=== PATIENT | male | born 2000 | race Hispanic/Latino ===

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

== ENCOUNTER 2021-09-22 15:42 | Inpatient (IN) | payer MEDICAID ==
[2021-09-22] MEDS ORDERED: propofoL 200 MG/20 ML VIAL IV ONE ×2 (16:55)
--- NOTE | 2021-09-22 16:55 | Emergency Department Report ---
Upper Extremity - HPI Chief Complaint: Extremity Injury, Upper Stated Complaint: SHOULDER DISLOCATED Time Seen by Provider: 09/22/21 16:25 Occurred When: Today Mechanism: Fall Severity: moderate Symptoms: Yes Pain with Movement, Yes Deformity, Yes Limited Range of Movement Other History: Patient is a 21-year-old male with history of previous left shoulder dislocation presenting with complaint of dislocated shoulder after falling out of bed earlier today. ED Review of Systems ROS: Stated complaint: SHOULDER DISLOCATED Other details as noted in HPI Comment: All other systems reviewed and negative Constitutional: denies: chills, fever Respiratory: denies: cough, shortness of breath, wheezing Cardiovascular: denies: chest pain, palpitations Gastrointestinal: denies: abdominal pain, nausea, diarrhea Musculoskeletal: denies: back pain, joint swelling, arthralgia Skin: denies: rash, lesions Neurological: denies: headache, weakness, paresthesias Psychiatric: denies: anxiety, depression ED Past Medical Hx - Past Medical History Hx Congestive Heart Failure: No Hx Diabetes: No Hx Seizures: Yes (on seizure medications received last dose at 2200) Hx Asthma: No Hx COPD: No Additional medical history: hypothyroidism, SI, Depression - Social History Smoking Status: Never Smoker - Medications Home Medications: Home Medications Medication Instructions Recorded Confirmed Last Taken Type Divalproex Sprinkle [Depakote 750 mg PO BID #60 capsule 08/21/18 08/23/18 Unknown Rx Sprinkle] Levothyroxine [Synthroid] 25 mcg PO DAILY@0600 #30 tablet 08/21/18 08/23/18 Unknown Rx OXcarbazepine [Trileptal] 150 mg PO BID #60 tablet 08/21/18 08/23/18 Unknown Rx Sertraline [Zoloft] 50 mg PO QDAY #30 tablet 08/21/18 08/23/18 Unknown Rx levETIRAcetam [Keppra TAB] 1,000 mg PO BID #60 tablet 08/21/18 08/23/18 Unknown Rx Upper Extremity Exam - Exam General: Vital signs noted. No distress. Alert and acting appropriately. Head and Torso: No HEENT Abnormality, No Neck Tenderness, No Chest/Lungs Abnormality, No Abdominal Tenderness, No Back Tenderness Shoulder Exam: Yes Shoulder Tenderness, Yes Normal Range of Motion in Shoulder, Yes Shoulder Deformity (Abnormal contour of left shoulder), No Clavicle Tenderness, No AC Joint Tenderness Arm Exam: No Arm/Humerus Tenderness, No Arm Deformity Elbow: Yes Normal Range of Motion in Elbow, No Elbow Tenderness, No Elbow Deformity Forearm: No Forearm Tenderness, No Forearm Deformity, No Pain with Pronation, No Pain with Supination Wrist: Yes Normal ROM in Wrist, No Wrist Tenderness, No Wrist Deformity, No Snuffbox Tenderness, No Pain with Axial Thumb Compression Hand: No Hand Tenderness, No Hand Deformity, No Digit Tenderness, No Normal ROM in Digit(s), No Digit(s) Deformity, No Tendon Dysfunction CMS Exam: Yes Normal Distal Pulses, Yes Normal Capillary Refill, Yes Normal Distal Sensation, No Broken Skin ED Course Vital Signs 09/22/21 16:21 Temperature 98 F Pulse Rate 81 Respiratory 18 Rate Blood Pressure 142/85 [Right] O2 Sat by Pulse 99 Oximetry - Intubation Time Out Performed: Yes Sedative: Etomidate Mg Given: 20 Paralytic: Rocuronium Mg Given: 100 Laryngoscope: fiberoptic video scope Size: 4 ET Tube Size: 7.5 Tube Secured Depth (cm): 24 Tube Secured Location: lips Tube Placement Confirmation: visualized tube passing t, equal breath sounds bilat, no breath sounds over epi Patient Tolerated Procedure: well, no complications Intubation Complications: none - Moderate Sedation Indications: fracture/dislocation redu ASA Class: I Mallampati Airway Score: 1 Preparation: cafeteria monitor applied, pulse oximeter, supplemental O2 applied, reversal agents at bedside, suction/airway equipment at bedside, IV secured IV Propofol Dose (mgs): 200 Complications: none Patient Tolerated Procedure: well ED Medical Decision Making - Lab Data Result diagrams: 09/22/21 18:30 09/22/21 18:30 - Medical Decision Making Patient presented initially with complaint of left shoulder dislocation. Several attempts were made to reduce the shoulder under moderate sedation how ever the shoulder appeared to reduce when attempting to place him in sling. As I was waiting for Ortho consult to call back I was alerted by staff that patient was having a seizure. I arrived to the room to find patient exhibiting seizure-like activity. He was given 2 mg of IV Ativan x2 with no improvement. Episode lasted roughly 5 minutes. Oxygen saturations were in the 80s. Decision was made to intubate under RSI. He was placed on a propofol infusion for sedation. 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 I discussed the case with Dr. Boyd. States he will see patient tomorrow in ICU. Repeat shoulder x-ray after patient intubated shows successful reduction of left shoulder. Patient placed in sling. CBC and CMP unremarkable. Patient stable on vent. Will admit to ICU. Critical Care Time: Yes Critical care time in (mins) excluding proc time.: 35 Critical care attestation.: If time is entered above; I have spent that time in minutes in the direct care of this critically ill patient, excluding procedure time. ED Disposition Clinical Impression: Seizure-like activity, Recurrent dislocation, left shoulder Disposition: ADMITTED INPATIENT Is pt being admited?: Yes Condition: Stable
--- NOTE | 2021-09-22 16:59 | XRay Report ---
Left shoulder, 3 views HISTORY: Fall COMPARISON: 08/24/2018. FINDINGS: There is dislocation of the left glenohumeral joint. The left humerus projects inferiorly with respec t to the glenoid on scapular Y view. Remote appearing deformity of the glenoid likely reflects sequel a of prior surgery and/or trauma. No acute fracture is identified. IMPRESSION: Dislocation of the left glenohumeral joint with inferior displacement of the humeral head . Signer Name: Alcon Schultz MD Signed: 09/22/2021 4:54 PM Workstation Name: [id number]
[2021-09-22] MEDS ORDERED: ONDANSETRON 4 MG/2 ML INJ IV ONE (17:22)
[2021-09-22] MEDS ORDERED: MORPHINE 4 MG/1 ML INJ IV ONE (17:22)
[2021-09-22] MEDS ORDERED: SODIUM CHLORIDE 0.9% 1000 ML 1,000 ML ONE (17:42)
[2021-09-22] MEDS ORDERED: LORazepam 2 MG/ML VIAL ONE ×2 (18:02→18:12)
[2021-09-22] MEDS ORDERED: LORazepam 2 MG/ML VIAL IV ONE (18:55)
[2021-09-22 18:58] LABS: Basophils % (Auto) 0.5 % (0.0-1.8); Eosinophils % (Auto) 0.5 % (0.0-4.3); Hematocrit 46.3 % (35.5-45.6); Hemoglobin 15.4 gm/dl (11.8-15.2); Lymphocytes # (Auto) 1.9 K/mm3 (1.2-5.4); Lymphocytes % (Auto) 28.6 % (13.4-35.0); Mean Corpuscular HGB Conc 33 % (32-34); Mean Corpuscular Volume 85 fl (84-94); Monocytes # (Auto) 0.5 K/mm3 (0.0-0.8); Monocytes % (Auto) 7.5 % (0.0-7.3); Platelet Count 150 K/mm3 (140-440); Red Blood Count 5.47 M/mm3 (3.65-5.03); Red Cell Distribution Width 14.6 % (13.2-15.2)
--- NOTE | 2021-09-22 19:03 | XRay Report ---
CHEST 1 VIEW INDICATION: Tube placement. COMPARISON: None FINDINGS: SUPPORT DEVICES: Endotracheal tube tip just below the level the clavicles. HEART: Within normal limits. LUNGS/PLEURA: No acute air space or interstitial disease. ADDITIONAL FINDINGS: None. IMPRESSION: 1. Endotracheal tube in satisfactory position. Clear lungs. Signer Name: Carson Yancey MD Signed: 09/22/2021 6:59 PM Workstation Name: [id number]
[2021-09-22 19:18] LABS: Alanine Aminotransferase 8 units/L (7-56); Albumin 5.1 g/dL (3.9-5); BUN/Creatinine Ratio 19; Blood Urea Nitrogen 15 mg/dL (9-20); Calcium 9.3 mg/dL (8.4-10.2); Hemolysis Index 23
[2021-09-22 19:23] LABS: ABG Base Excess -2.6 mmol/L (-2.0-3.0); ABG HCO3 23.6 mmol/L (20.0-26.0); ABG Methemoglobin 0.6 % (0.0-1.5); ABG Oxygen Saturation 99.1 % (95.0-99.0); ABG PCO2 45.8 mm Hg; ABG PH 7.33 pH Units (7.350-7.450); ABG PO2 185.7 mm Hg (80.0-90.0)
[2021-09-22 19:24] LABS: Bilirubin,Direct < 0.2 mg/dL (0-0.2)
--- NOTE | 2021-09-22 19:33 | XRay Report ---
Single frontal image of the left shoulder INDICATION: Post reduction. COMPARISON: None available. IMPRESSION: No acute osseous abnormality. Interval relocation with normal alignment. Subchondral cy stic change versus old posttraumatic deformity along the glenoid. Soft tissues are unremarkable. Signer Name: Carson Yancey MD Signed: 09/22/2021 7:29 PM Workstation Name: [id number]
[2021-09-22] MEDS ORDERED: MIDAZOLAM 2 MG/2 ML INJ IV PRN ×2 (19:38→19:44)
[2021-09-22] MEDS ORDERED: MIDAZOLAM/NS Drip 100mg/100ml 100 MG/100 ML BAG IV SCH ×2 (20:00)
[2021-09-22] MEDS ORDERED: METOCLOPRAMIDE 10 MG/2 ML INJ IV PRN (20:39)
[2021-09-22] MEDS ORDERED: MORPHINE 2 MG/1 ML INJ IV PRN (20:39)
[2021-09-22] MEDS ORDERED: HYDROmorphone 0.5 MG/0.5 ML INJ IV PRN (20:39)
[2021-09-22] MEDS ORDERED: ONDANSETRON 4 MG/2 ML INJ IV PRN (20:39)
--- NOTE | 2021-09-22 20:39 | History and Physical Report ---
History of Present Illness Date of examination: 09/22/21 Date of admission: September 22, 2021 Chief complaint: Persistent seizures while in the emergency room History of present illness: History of present illness 21-year-old male with history of hypothyroidism, seizure disorder on Trileptal and Depakote comes in for left shoulder dislocation. While the shoulder disloca tion was being corrected by the ER physician--patient continued to have seizures multiple times and went into hypoxia because of which the patient has to be intubated in the emergency room. After intubation left shoulder dislocation was corrected. No seizures recently. No fever or chills. No cough. Compliant with medications - Past Medical History --Seizure disorder seizure medications received last dose ter at 2200) --Additional medical history: hypothyroidism, SI, Depression --Recurrent left shoulder dislocation -Past surgical history y --left shoulder dislocation replacement -Family history --HTN - Social History --Smoking Status: Never Smoker - Medications --Home Medications: Home Medications Medication Instructions Recorded Confirmed Last Taken Type Divalproex Sprinkle [Depakote 750 mg PO BID #60 capsule 08/21/18 08/23/18 Unknown Rx Sprinkle] Levothyroxine [Synthroid] 25 mcg PO DAILY@0600 #30 tablet 08/21/18 08/23/18 Unknown Rx OXcarbazepine [Trileptal] 150 mg PO BID #60 tablet 08/21/18 08/23/18 Unknown Rx Sertraline [Zoloft] 50 mg PO QDAY #30 tablet 08/21/18 08/23/18 Unknown Rx levETIRAcetam [Keppra TAB] 1,000 mg PO BID #60 tablet 08/21/18 08/23/18 Unknown Rx -Review of Systems ROS: Stated complaint: SHOULDER DISLOCATED Other details as noted in HPI Comment: All other systems reviewed and negative Constitutional: denies: chills, fever Respiratory: denies: cough, shortness of breath, wheezing Cardiovascular: denies: chest pain, palpitations Gastrointestinal: denies: abdominal pain, nausea, diarrhea Musculoskeletal: denies: back pain, joint swelling, arthralgia Skin: denies: rash, lesions Neurological: denies: headache, weakness, paresthesias Psychiatric: denies: anxiety, depression Medications and Allergies Allergies Allergy/AdvReac Type Severity Reaction Status Date / Time ketamine Allergy Hives Verified 09/22/21 17:10 tomato Allergy Anaphylaxis Verified 09/22/21 16:24 Home Medications Medication Instructions Recorded Confirmed Last Taken Type Divalproex Sprinkle [Depakote 750 mg PO BID #60 capsule 08/21/18 08/23/18 Unknown Rx Sprinkle] Levothyroxine [Synthroid] 25 mcg PO DAILY@0600 #30 tablet 08/21/18 08/23/18 Unkn own Rx OXcarbazepine [Trileptal] 150 mg PO BID #60 tablet 08/21/18 08/23/18 Unknown Rx Sertraline [Zoloft] 50 mg PO QDAY #30 tablet 08/21/18 08/23/18 Unknown Rx levETIRAcetam [Keppra TAB] 1,000 mg PO BID #60 tablet 08/21/18 08/23/18 Unknown Rx Active Meds: Active Medications Propofol (Diprivan 10 Mg/Ml) 1,000 mg in 100 mls @ 2.504 mls/hr IV TITR SAUL; Protocol Last Titration: 09/22/21 19:51 Dose: 30 mcg/kg/min, 15.023 mls/hr MIDAZOLAM/NS Drip 100mg/100ml (Midazolam/Ns Drip 100mg/100ml) 100 mg in 100 mls @ 1 mls/hr IV TITR SAUL; Protocol Last Admin: 09/22/21 19:45 Dose: 1 mg/hr, 1 mls/hr Midazolam HCl (Midazolam 2 Mg/2 Ml Inj) 2 mg IV Q10MIN PRN PRN Reason: Sedation Exam - Physical Exam Narrative exam: Patient intubated - Constitutional Vitals: Temp Pulse Resp BP Pulse Ox 98.6 F 79 16 122/73 99 09/22/21 18:35 09/22/21 20:05 09/22/21 18:35 09/22/21 20:05 09/22/21 20:05 General appearance: Present: severe distress, well-nourished - EENT Eyes: Present: PERRL ENT: hearing intact, clear oral mucosa - Neck Neck: Present: supple, normal ROM - Respiratory Respiratory effort: normal Respiratory: bilateral: CTA - Cardiovascular Heart rate: 78 Rhythm: regular Heart Sounds: Present: S1 & S2. Absent: rub, click - Extremities Extremities: pulses symmetrical, No edema, abnormal (Left shoulder dislocation) Extremity abnormal: other (Left anterior shoulder dislocation) Peripheral Pulses: within normal limits - Abdominal General gastrointestinal: Present: soft, non-tender, non-distended, normal bowel sounds Male genitourinary: Present: normal - Integumentary Integumentary: Present: clear, warm, dry - Musculoskeletal Musculoskeletal: gait normal, strength equal bilaterally - Psychiatric Psychiatric: appropriate mood/affect, intact judgment & insight, other (Continued seizures or emergency room) - Neurologic Neurologic: CNII-XII intact, moves all extremities - Allied Health Allied health notes reviewed: nursing, case management Results - Labs CBC & Chem 7: 09/23/21 04:44 09/23/21 04:44 Labs: Laboratory Last Values WBC 6.8 K/mm3 (4.5-11.0) 09/22/21 18:30 RBC 5.47 M/mm3 (3.65-5.03) H 09/22/21 18:30 Hgb 15.4 gm/dl (11.8-15.2) H 09/22/21 18:30 Hct 46.3 % (35.5-45.6) H 09/22/21 18:30 MCV 85 fl (84-94) 09/22/21 18:30 MCH 28 pg (28-32) 09/22/21 18:30 MCHC 33 % (32-34) 09/22/21 18:30 RDW 14.6 % (13.2-15.2) 09/22/21 18:30 Plt Count 150 K/mm3 (140-440) 09/22/21 18:30 Lymph % (Auto) 28.6 % (13.4-35.0) 09/22/21 18:30 [place] % (Auto) 7.5 % (0.0-7.3) H 09/22/21 18:30 Eos % (Auto) 0.5 % (0.0-4.3) 09/22/21 18:30 Baso % (Auto) 0.5 % (0.0-1.8) 09/22/21 18:30 Lymph # (Auto) 1.9 K/mm3 (1.2-5.4) 09/22/21 18:30 [place] # (Auto) 0.5 K/mm3 (0.0-0.8) 09/22/21 18:30 Eos # (Auto) 0.0 K/mm3 (0.0-0.4) 09/22/21 18:30 Baso # (Auto) 0.0 K/mm3 (0.0-0.1) 09/22/21 18:30 Seg Neutrophils % 62.9 % (40.0-70.0) 09/22/21 18:30 Seg Neutrophils # 4.3 K/mm3 (1.8-7.7) 09/22/21 18:30 ABG pH 7.330 pH Units (7.350-7.450) L 09/22/21 19:08 ABG pCO2 45.8 mm Hg 09/22/21 19:08 ABG pO2 185.7 mm Hg (80.0-90.0) H 09/22/21 19:08 ABG HCO3 23.6 mmol/L (20.0-26.0) 09/22/21 19:08 ABG O2 Saturation 99.1 % (95.0-99.0) H 09/22/21 19:08 ABG O2 Content 20.9 (0.0-44) 09/22/21 19:08 ABG Base Excess -2.6 mmol/L (-2.0-3.0) L 09/22/21 19:08 ABG Hemoglobin 15.0 gm/dl (14.0-18.0) 09/22/21 19:08 ABG Carboxyhemoglobin 1.3 % (0.0-5.0) 09/22/21 19:08 ABG Methemoglobin 0.6 % (0.0-1.5) 09/22/21 19:08 Oxyhemoglobin 97.2 % (95.0-99.0) 09/22/21 19:08 FiO2 35 % 09/22/21 19:08 Sodium 141 mmol/L (137-145) 09/22/21 18:30 Potassium 3.9 mmol/L (3.6-5.0) 09/22/21 18:30 Chloride 105.9 mmol/L (98-107) 09/22/21 18:30 Carbon Dioxide 21 mmol/L (22-30) L 09/22/21 18:30 Anion Gap 18 mmol/L 09/22/21 18:30 BUN 15 mg/dL (9-20) 09/22/21 18:30 Creatinine 0.8 mg/dL (0.8-1.3) 09/22/21 18:30 Estimated GFR > 60 ml/min 09/22/21 18:30 BUN/Creatinine Ratio 19 % 09/22/21 18:30 Glucose 110 mg/dL (75-100) H 09/22/21 18:30 Calcium 9.3 mg/dL (8.4-10.2) 09/22/21 18:30 Total Bilirubin 0.90 mg/dL (0.1-1.2) 09/22/21 18:30 Direct Bilirubin < 0.2 mg/dL (0-0.2) 09/22/21 18:30 Indirect Bilirubin 0.7 mg/dL 09/22/21 18:30 AST 15 units/L (5-40) 09/22/21 18:30 ALT 8 units/L (7-56) 09/22/21 18:30 Alkaline Phosphatase 65 units/L (35-129) 09/22/21 18:30 Total Protein 7.3 g/dL (6.3-8.2) 09/22/21 18:30 Albumin 5.1 g/dL (3.9-5) H 09/22/21 18:30 Albumin/Globulin Ratio 2.3 % 09/22/21 18:30 Short CBC 09/22/21 09/23/21 Range/Units 18:30 04:44 WBC 6.8 7.5 (4.5-11.0) K/mm3 Hgb 15.4 H 15.3 H (11.8-15.2) gm/dl Hct 46.3 H 44.7 (35.5-45.6) % Plt Count 150 104 L (140-440) K/mm3 BMP 09/22/21 09/23/21 18:30 04:44 Sodium 141 140 Potassium 3.9 4.2 Chloride 105.9 102.6 Carbon Dioxide 21 L 21 L BUN 15 14 Creatinine 0.8 0.9 Glucose 110 H 81 Calcium 9.3 10.0 Liver Function 09/22/21 09/23/21 Range/Units 18:30 04:44 Total Bilirubin 0.90 0.90 (0.1-1.2) mg/dL Direct Bilirubin < 0.2 (0-0.2) mg/dL AST 15 15 (5-40) units/L ALT 8 7 (7-56) units/L Alkaline Phosphatase 65 70 (35-129) units/L Albumin 5.1 H 4.8 (3.9-5) g/dL Urine 09/22/21 Range/Units 19:52 Urine Color Yellow (Yellow) Urine pH 7.5 H (5.0-7.0) Ur Specific [place] 1.020 (1.003-1.030) Urine Protein 30 mg/dl (Negative) mg/dL Urine Glucose (UA) Negative (Negative) mg/dL - Imaging and Cardiology CT Scan - head: report reviewed Imaging and Cardiology: Shoulder x-ray Dislocation of the left glenohumeral joint with increased displacement of the humeral head Assessment and Plan Assessment and plan: Critical care statement The high probability OF a clinically significant sudden or life-threatening deterioration of the cardiorespiratory system and endocrine system required my full and direct attention, intervention and postoperative management. The aggregate medical care time was 40 minutes. The time is in addition to time spent performing reported procedures but includes the followin: Data review and interpretation 2: Patient assessment and monitoring of vital signs 3: Documentation 4:: Medication orders and management Advance Directives: Yes (Full code) VTE prophylaxis?: Chemical Plan of care discussed with patient/family: Yes - Patient Problems (1) Status epilepticus Current Visit: Yes Status: Acute Plan to address problem: Patient was seizing continuously and becoming hypoxic Because of the hypoxia patient had to be intubated Patient sedated with propofol Versed not to be used Informed ICU and emergency room nurse Continue vent management IV Keppra 1000 mg every 12 Neurology consult Coach Driver consult (2) Recurrent dislocation, left shoulder Current Visit: Yes Status: Acute Plan to address problem: Replaced after intubation and sedation Left arm in sling Patient to see orthopedic surgeon as outpatient for correction of the rotator cuff weakness (3) Hypothyroidism Current Visit: No Status: Chronic Qualifiers: Hypothyroidism type: acquired Qualified Code(s): E03.9 - Hypothyroidism, unspecified Plan to address problem: Check TSH Continue Synthroid (4) DVT prophylaxis Current Visit: Yes Status: Acute Plan to address problem: On anticoagulation GI prophylaxis (5) Advance care planning Current Visit: Yes Status: Acute Plan to address problem: Could not be done because of the patient's intubation status and no family present
[2021-09-22] MEDS ORDERED: SODIUM CHLORIDE 0.9% 1000 ML 1,000 ML IV SCH (20:45)
[2021-09-22 21:43] LABS: Bilirubin,Urine Negative (Negative); Color,Urine Yellow (Yellow)
[2021-09-22 21:44] LABS: Blood,Urine Negative (Negative); PH,Urine 7.5 (5.0-7.0)
[2021-09-22 21:46] LABS: Calcium Oxalate Crystals,Urine FEW; Mucus,Urine 3+ /HPF
[2021-09-22] MEDS ORDERED: FAMOTIDINE 20 MG/2 ML INJ IV SCH (22:00)
[2021-09-22] MEDS ORDERED: DIVALPROEX SPRINKLE 125 MG CAP PO SCH (22:00)
[2021-09-22] MEDS: HEPARIN 5,000 UNIT/1 ML VIAL SUB-Q SCH (23:00)
--- NOTE | 2021-09-22 23:31 | XRay Report ---
XR abdomen 1V ap INDICATION / CLINICAL INFORMATION: OG tube placement. COMPARISON: None available. TECHNIQUE: Abdominal x-ray 08/19/2018 FINDINGS: TUBES / LINES: Esophagogastric tube terminates within the mid fundus. BOWEL GAS PATTERN: No significant abnormality. FREE AIR / EXTRALUMINAL GAS: None seen. ADDITIONAL FINDINGS: No significant additional findings. IMPRESSION: 1. Esophagogastric tube in expected position. Signer Name: Mariusz Gamble II, MD Signed: 09/22/2021 11:27 PM Workstation Name: [id number]
[2021-09-23] MEDS: OXcarbazepine 150 MG TAB PO SCH ×3 (00:40→21:53)
[2021-09-23] MEDS: levETIRAcetam 1,000 MG in DEXTROSE 5% IN WATER 100 ML IV SCH ×2 (00:40→10:12)
[2021-09-23 04:42] LABS: ABG Base Excess 0.2 mmol/L (-2.0-3.0); ABG HCO3 25.7 mmol/L (20.0-26.0); ABG Methemoglobin 0.6 % (0.0-1.5); ABG Oxygen Saturation 98.3 % (95.0-99.0); ABG PCO2 44.8 mm Hg; ABG PH 7.376 pH Units (7.350-7.450)
[2021-09-23] MEDS ORDERED: ETOMIDATE 20 MG/10 ML INJ IV ONE (05:00)
[2021-09-23] MEDS ORDERED: ROCURONIUM 50 MG/5 ML INJ IV ONE (05:00)
[2021-09-23 05:29] LABS: Basophils # (Auto) 0.1 K/mm3 (0.0-0.1); Basophils % (Auto) 0.7 % (0.0-1.8); Eosinophils # (Auto) 0.1 K/mm3 (0.0-0.4); Eosinophils % (Auto) 1.1 % (0.0-4.3); Hematocrit 44.7 % (35.5-45.6); Hemoglobin 15.3 gm/dl (11.8-15.2); Lymphocytes # (Auto) 1.5 K/mm3 (1.2-5.4); Lymphocytes % (Auto) 19.7 % (13.4-35.0); Mean Corpuscular HGB Conc 34 % (32-34); Mean Corpuscular Volume 84 fl (84-94); Monocytes # (Auto) 0.6 K/mm3 (0.0-0.8); Monocytes % (Auto) 8.2 % (0.0-7.3); Red Blood Count 5.32 M/mm3 (3.65-5.03); Red Cell Distribution Width 14.2 % (13.2-15.2)
[2021-09-23 05:49] LABS: Alanine Aminotransferase 7 units/L (7-56); Albumin 4.8 g/dL (3.9-5); BUN/Creatinine Ratio 16; Blood Urea Nitrogen 14 mg/dL (9-20); Hemolysis Index 37
[2021-09-23] MEDS: LEVOTHYROXINE 25 MCG TAB PO SCH (05:56)
[2021-09-23 06:27] LABS: Platelet Count 104 K/mm3 (140-440)
[2021-09-23] MEDS ORDERED: FAMOTIDINE 20 MG TAB FEEDTUBE SCH (10:00)
[2021-09-23] MEDS: VALPROIC ACID 250 MG/5 ML ORAL LIQD FEEDTUBE SCH ×2 (10:09→21:53)
[2021-09-23] MEDS: HEPARIN 5,000 UNIT/1 ML VIAL SUB-Q SCH ×2 (10:09→21:54)
[2021-09-23] MEDS: SERTRALINE 50 MG TAB PO SCH (10:10)
[2021-09-23] MEDS: LORazepam 2 MG/ML VIAL IV PRN ×2 (11:29→15:36)
--- NOTE | 2021-09-23 13:04 | Consultation ---
History of Present Illness Consult date: 09/23/21 History of present illness: 21 y/o male with seizure like activity admitted with seizure and acute respiratory failure secondary to this. Past History Past Medical History: hypothyroidism, other (psych issues, with multiple admits to other hospitals for insertion of foregin objects into orifices and depression anxiety) Medications and Allergies Allergies Allergy/AdvReac Type Severity Reaction Status Date / Time ketamine Allergy Hives Verified 09/22/21 17:10 tomato Allergy Anaphylaxis Verified 09/22/21 16:24 Home Medications Medication Instructions Recorded Confirmed Last Taken Type Divalproex Sprinkle [Depakote 750 mg PO BID #60 capsule 08/21/18 08/23/18 Unknown Rx Sprinkle] Levothyroxine [Synthroid] 25 mcg PO DAILY@0600 #30 tablet 08/21/18 08/23/18 Unknown Rx OXcarbazepine [Trileptal] 150 mg PO BID #60 tablet 08/21/18 08/23/18 Unknown Rx Sertraline [Zoloft] 50 mg PO QDAY #30 tablet 08/21/18 08/23/18 Unknown Rx levETIRAcetam [Keppra TAB] 1,000 mg PO BID #60 tablet 08/21/18 08/23/18 Unknown Rx Active Meds: Active Medications Acetaminophen (Acetaminophen 325 Mg Tab) 650 mg PO Q4H PRN PRN Reason: Pain MILD(1-3)/Fever >100.5/VALERA Famotidine (Famotidine 20 Mg Tab) 20 mg FEEDTUBE BID [facility] Last Admin: 09/23/21 10:09 Dose: 20 mg Heparin Sodium (Porcine) (Heparin 5,000 Unit/1 Ml Vial) 5,000 unit SUB-Q Q12HR [facility] Last Admin: 09/23/21 10:09 Dose: 5,000 unit Hydromorphone HCl (Hydromorphone 0.5 Mg/0.5 Ml Inj) 0.5 mg IV Q3H PRN PRN Reason: Pain , Severe (7-10) Propofol (Diprivan 10 Mg/Ml) 1,000 mg in 100 mls @ 2.504 mls/hr IV TITR [facility]; Protocol Last Admin: 09/23/21 11:21 Dose: 50 mcg/kg/min, 25.038 mls/hr Levetiracetam 1,000 mg/ (Dextrose) 110 mls @ 400 mls/hr IV Q12HR [facility] Last Admin: 09/23/21 10:12 Dose: 400 mls/hr Levothyroxine Sodium (Levothyroxine 25 Mcg Tab) 25 mcg PO DAILY@0600 [facility] Last Admin: 09/23/21 05:56 Dose: 25 mcg Lorazepam (Lorazepam 2 Mg/Ml Vial) 2 mg IV Q1H PRN PRN Reason: Seizures Last Admin: 09/23/21 11:29 Dose: 2 mg Metoclopramide HCl (Metoclopramide 10 Mg/2 Ml Inj) 10 mg IV Q6H PRN PRN Reason: Nausea And Vomiting Morphine Sulfate (Morphine 2 Mg/1 Ml Inj) 2 mg IV Q4H PRN PRN Reason: Pain, Moderate (4-6) Ondansetron HCl (Ondansetron 4 Mg/2 Ml Inj) 4 mg IV Q8H PRN PRN Reason: Nausea And Vomiting Oxcarbazepine (Oxcarbazepine 150 Mg Tab) 150 mg PO BID [facility] Last Admin: 09/23/21 11:21 Dose: 150 mg Sertraline HCl (Sertraline 50 Mg Tab) 50 mg PO QDAY [facility] Last Admin: 09/23/21 10:10 Dose: 50 mg Sodium Chloride (Sodium Chloride 0.9% 10 Ml Flush Syringe) 10 ml IV BID [facility] Last Admin: 09/23/21 10:10 Dose: 10 ml Sodium Chloride (Sodium Chloride 0.9% 10 Ml Flush Syringe) 10 ml IV PRN PRN PRN Reason: LINE FLUSH Valproic Acid (Valproic Acid 250 Mg/5 Ml Oral Liqd) 750 mg FEEDTUBE BID [facility] Last Admin: 09/23/21 10:09 Dose: 750 mg Review of Systems ROS unobtainable: due to endotracheal tube, due to mental status Physical Examination Vital signs: Vital Signs Temp Pulse Resp BP Pulse Ox 98 F 81 18 142/85 99 09/22/21 16:21 09/22/21 16:21 09/22/21 16:21 09/22/21 16:21 09/22/21 16:21 General appearance: no acute distress, asleep Eyes: non-icteric ENT: other (orally intubated and sedated) Neck: supple Effort: normal Ascultation: Bilateral: clear Results - Laboratory Findings CBC and BMP: 09/24/21 04:19 09/24/21 04:19 ABG ABG pH 7.376 pH Units (7.350-7.450) 09/23/21 04:00 ABG pCO2 44.8 mm Hg 09/23/21 04:00 ABG pO2 125.0 mm Hg (80.0-90.0) H 09/23/21 04:00 ABG O2 Saturation 98.3 % (95.0-99.0) 09/23/21 04:00 Abnormal lab findings: Abnormal Labs 09/22/21 09/22/21 09/22/21 18:30 18:30 19:08 RBC 5.47 H Hgb 15.4 H Hct 46.3 H Plt Count [place] % (Auto) 7.5 H Seg Neutrophils % ABG pH 7.330 L ABG pO2 185.7 H ABG O2 Saturation 99.1 H ABG Base Excess -2.6 L ABG Hemoglobin Carbon Dioxide 21 L Glucose 110 H Albumin 5.1 H Urine pH 09/22/21 09/23/21 09/23/21 19:52 04:00 04:44 RBC 5.32 H Hgb 15.3 H Hct Plt Count 104 L [place] % (Auto) 8.2 H Seg Neutrophils % 70.3 H ABG pH ABG pO2 125.0 H ABG O2 Saturation ABG Base Excess ABG Hemoglobin 13.6 L Carbon Dioxide Glucose Albumin Urine pH 7.5 H 09/23/21 04:44 RBC Hgb Hct Plt Count [place] % (Auto) Seg Neutrophils % ABG pH ABG pO2 ABG O2 Saturation ABG Base Excess ABG Hemoglobin Carbon Dioxide 21 L Glucose Albumin Urine pH Assessment and Plan 21 y/o male with seizure like activity, intubated for airway protection with dislocated shoulder, corrected 1. Await head CT results 2. If negative, discontinue sedation and extubate 3. Patient apparently goes to multiple hospitals throughout the city and has severe psych issues (swallows foreign objects, inserts objects, pseudoseizures, etc). Once extubated, psych eval, sitter needed. CCT 31 minutes.
--- NOTE | 2021-09-23 13:48 | Cat Scan Report ---
CT head/brain wo con INDICATION / CLINICAL INFORMATION: 21 years Male; ams. TECHNIQUE: Routine CT head without contrast. All CT scans at this location are performed using CT dos e reduction for ALARA by means of automated exposure control. COMPARISON: None. FINDINGS: BRAIN / INTRACRANIAL CONTENTS: The brain parenchyma appears to demonstrate appropriate attenuation. T he ventricular system is within normal limits in size and configuration. There is no clear CT evidenc e of acute intracranial hemorrhage or significant mass effect. ORBITS: No significant abnormality of visualized orbits. SINUSES / MASTOIDS: There is minimal mucosal thickening within the ethmoid air cells and visualized l eft maxillary sinus. CRANIOCERVICAL JUNCTION: No significant abnormality. ADDITIONAL FINDINGS: None. IMPRESSION: 1. There is no CT evidence of acute intracranial process. Signer Name: Josh Warner MD Signed: 09/23/2021 1:43 PM Workstation Name: [id number]
--- NOTE | 2021-09-23 14:37 | Consultation ---
History of Present Illness Consult date: 09/23/21 Reason for Consult: Status Epilepticus Chief complaint: Seizures History of present illness: 21 yo male with seizure d/o (trileptal, keppra, depakote home regimen), pseudoseizures, who presents with noted multiple seizures with left shoulder dislocation and during the ED course noted to suffer from o2 desat during the seizures and had to be intubated. Patient's shoulder was treated s/p intubation. Patient awas treated with Keppra. Currently, patient remains intubated and is on propofol. Past History Past Medical History: seizures, other (cannot obtain due to loc;) Past Surgical History: Other (cannot obtain due to loc;) Social history: other (cannot obtain due to loc;) Family history: other (cannot obtain due to loc;) Medications and Allergies Allergies Allergy/AdvReac Type Severity Reaction Status Date / Time ketamine Allergy Hives Verified 09/22/21 17:10 tomato Allergy Anaphylaxis Verified 09/22/21 16:24 Home Medications Medication Instructions Recorded Confirmed Last Taken Type Divalproex Sprinkle [Depakote 750 mg PO BID #60 capsule 08/21/18 08/23/18 Unknown Rx Sprinkle] Levothyroxine [Synthroid] 25 mcg PO DAILY@0600 #30 tablet 08/21/18 08/23/18 Unknown Rx OXcarbazepine [Trileptal] 150 mg PO BID #60 tablet 08/21/18 08/23/18 Unknown Rx Sertraline [Zoloft] 50 mg PO QDAY #30 tablet 08/21/18 08/23/18 Unknown Rx levETIRAcetam [Keppra TAB] 1,000 mg PO BID #60 tablet 08/21/18 08/23/18 Unknown Rx Active Meds: Active Medications Acetaminophen (Acetaminophen 325 Mg Tab) 650 mg PO Q4H PRN PRN Reason: Pain MILD(1-3)/Fever >100.5/[place] Famotidine (Famotidine 20 Mg Tab) 20 mg FEEDTUBE BID [facility] Last Admin: 09/23/21 10:09 Dose: 20 mg Heparin Sodium (Porcine) (Heparin 5,000 Unit/1 Ml Vial) 5,000 unit SUB-Q Q12HR [facility] Last Admin: 09/23/21 10:09 Dose: 5,000 unit Hydromorphone HCl (Hydromorphone 0.5 Mg/0.5 Ml Inj) 0.5 mg IV Q3H PRN PRN Reason: Pain , Severe (7-10) Propofol (Diprivan 10 Mg/Ml) 1,000 mg in 100 mls @ 2.504 mls/hr IV TITR [facility]; Protocol Last Admin: 09/23/21 11:21 Dose: 50 mcg/kg/min, 25.038 mls/hr Levetiracetam 1,000 mg/ (Dextrose) 110 mls @ 400 mls/hr IV Q12HR [facility] Last Admin: 09/23/21 10:12 Dose: 400 mls/hr Levothyroxine Sodium (Levothyroxine 25 Mcg Tab) 25 mcg PO DAILY@0600 [facility] Last Admin: 09/23/21 05:56 Dose: 25 mcg Lorazepam (Lorazepam 2 Mg/Ml Vial) 2 mg IV Q1H PRN PRN Reason: Seizures Last Admin: 09/23/21 11:29 Dose: 2 mg Metoclopramide HCl (Metoclopramide 10 Mg/2 Ml Inj) 10 mg IV Q6H PRN PRN Reason: Nausea And Vomiting Morphine Sulfate (Morphine 2 Mg/1 Ml Inj) 2 mg IV Q4H PRN PRN Reason: Pain, Moderate (4-6) Ondansetron HCl (Ondansetron 4 Mg/2 Ml Inj) 4 mg IV Q8H PRN PRN Reason: Nausea And Vomiting Oxcarbazepine (Oxcarbazepine 150 Mg Tab) 150 mg PO BID [facility] Last Admin: 09/23/21 11:21 Dose: 150 mg Sertraline HCl (Sertraline 50 Mg Tab) 50 mg PO QDAY [facility] Last Admin: 09/23/21 10:10 Dose: 50 mg Sodium Chloride (Sodium Chloride 0.9% 10 Ml Flush Syringe) 10 ml IV BID [facility] Last Admin: 09/23/21 10:10 Dose: 10 ml Sodium Chloride (Sodium Chloride 0.9% 10 Ml Flush Syringe) 10 ml IV PRN PRN PRN Reason: LINE FLUSH Valproic Acid (Valproic Acid 250 Mg/5 Ml Oral Liqd) 750 mg FEEDTUBE BID [facility] Last Admin: 09/23/21 10:09 Dose: 750 mg Review of Systems ROS unobtainable: due to endotracheal tube, due to mental status Physical Examination - Vital Signs Vital Signs: Vital Signs Temp Pulse Resp BP Pulse Ox 98 F 81 18 142/85 99 09/22/21 16:21 09/22/21 16:21 09/22/21 16:21 09/22/21 16:21 09/22/21 16:21 - Physical Exam Narrative exam: Gen: nad, well-nourished, intubated; Head: normocephalic; Eyes: no gaze deviation; no ptosis appreciated; ENT: +ETT; CVS: warm and well-perfused; Pulm: no respiratory distress; GI: appears non-distended; Ext: no cyanosis appreciated at distal extremities; shoulder sling at LUE; Skin: no acute rash appreciated at distal extremities; Heme: no pathologic ecchymosis appreciated at distal extremities; Neuro: (on propofol) stuporous / obtunded with no reaction to sternal rub, not following commands, intubated, CN 2 - sluggish reactive pupils, CN 3, 4, 6 - oculocephalic not tested, CN 5/7 - corneal reflex intact, CN 9/10 - swallowing noted, CN 11/12 - pt cannot cooperate secondary to LOC; Motor/Sensory - at least 2-/5 at RUE and at least 2+/5 at BLEs and 0/5 at LUE; Cerebellar/Gait - pt cannot cooperate secondary to LOC; Results - Laboratory Findings CBC and BMP: 09/23/21 04:44 09/23/21 04:44 Abnormal Lab Findings: Abnormal Labs 09/22/21 09/22/21 09/22/21 18:30 18:30 19:08 RBC 5.47 H Hgb 15.4 H Hct 46.3 H Plt Count Logan % (Auto) 7.5 H Seg Neutrophils % ABG pH 7.330 L ABG pO2 185.7 H ABG O2 Saturation 99.1 H ABG Base Excess -2.6 L ABG Hemoglobin Carbon Dioxide 21 L Glucose 110 H Albumin 5.1 H Urine pH 09/22/21 09/23/21 09/23/21 19:52 04:00 04:44 RBC 5.32 H Hgb 15.3 H Hct Plt Count 104 L Logan % (Auto) 8.2 H Seg Neutrophils % 70.3 H ABG pH ABG pO2 125.0 H ABG O2 Saturation ABG Base Excess ABG Hemoglobin 13.6 L Carbon Dioxide Glucose Albumin Urine pH 7.5 H 09/23/21 04:44 RBC Hgb Hct Plt Count Logan % (Auto) Seg Neutrophils % ABG pH ABG pO2 ABG O2 Saturation ABG Base Excess ABG Hemoglobin Carbon Dioxide 21 L Glucose Albumin Urine pH Assessment and Plan 21 yo male with seizure d/o (trileptal, keppra, depakote home regimen), pseudoseizures, who presents with status epilepticus w/ left shoulder dis location with acute respiratory failure. 1. Status Epilepticus - recommend transfer to a facility with long-term video eeg monitoring; increase: keppra 1500 mg iv/po bid; trileptal 150 mg po bid; valproate 750 mg iv/po bid; aggressive treatment of underlying infectious / m etabolic / toxic / electrolyte abnormalities per primary team; mri brain w/ wo contrast when clinically stable; nchct is unremarkable; seizure precautions / restrictions. 2. Therapeutic Drug Monitoring - confirm valproate level in AM and adjust accordingly. 3. Pseudoseizures (hx of) - agree with treatment of underlying psychologic disease(s); recommend transfer to a facility with long-term video eeg monitoring . 4. Toxic Encephalopathy - on propofol. 5. Acute Respiratory Failure - recommend long-term video eeg prior to extubation secondary to risk of reintubation with recurrent "seizures". 6. Seizure precautions. Han Alvarenga MD Neurology [id number]
[2021-09-23] MEDS ORDERED: levETIRAcetam 500 MG in DEXTROSE 5% IN WATER 100 ML IV ONE (16:00)
[2021-09-23] MEDS: ACETAMINOPHEN 325 MG TAB PO PRN (16:41)
[2021-09-23] MEDS ORDERED: LORazepam 2 MG/ML VIAL IV PRN (16:52)
[2021-09-23] MEDS ORDERED: D5W/0.45% NACL 1,000 ML IV SCH (17:00)
--- NOTE | 2021-09-23 17:14 | Progress Note ---
<PANCHOEVARISTO NadiraJewell - Last Filed: 09/23/21 17:17> Assessment and Plan Assessment and plan: This is a 21-year-old male with hypothyroidism, seizure disorder/pseudoseizures, depression, SI and dislocated shoulders admitted with acute hypoxic respiratory distress, seizure activity and dislocated shoulder Neuro: h/o pseudoseizuresseizure disorder, depression -Sedated with propofol -RASS goal 0 to -1 -Discontinued after extubation -Ativan as needed -Resume home antiepileptic medications: Keppra, Depakene, Oxycarbamazepine -Avoid delirium -Reorientation as needed -Maintain sleep-wake cycle -aspiration/seizure precautions -As needed analgesia -CT head with no acute abnormality -Neurology consulted, appreciate recommendations -EEG pending -Psych consulted, appreciate recommendations Cardiac: Sinus tachycardia -Blood pressure monitoring per protocol -Continuous ECG monitoring Respiratory: Acute hypoxic respiratory failure -CCM consulted, appreciate recommendations -Intubated in the ED on 09/22 for airway protection with 7.50 ETT at 24 the lips -A.m. vent settings: Assist-control rate 12, tidal volume 450, PEEP 6, FiO2 25% -See RT notes for titration -Patient extubated post CT -Supplemental oxygen as needed -A.m. ABG and CXR noted -Pulmonary hygiene -SPO2 monitoring GI: NAD -24 hours +75 mL -PPI -Regular diet : Metabolic acidosis -Monitor intake and output -Renally dose medications -Avoid nephrotoxic medications -Trend BMP ID: NAD -As needed Tylenol -f/u blood culture -Monitor WBC and temperature curve Endo: h/o Hypothyroidism -Resume home Synthroid -Avoid hypoglycemia -Accu-Cheks q. 6 Heme: NAD -Heparin subcu -Trend CBC -Transfuse hemoglobin less than 7 -Monitor for signs of bleeding -SCDs to BLE while in bed The high probability of a clinically significant, sudden or life threatening d eterioration of the [neuro/pulm] system(s) required my full and direct attention, intervention and personal management. The aggregate critical care time was [90] minutes. This time is in addition to time spent performing reported procedures but includes the following: [x] Data Review and interpretation [x] Patient assessment and monitoring of vital signs [x] Documentation [x] Medication orders and management Disposition Plan: icu Total Time Spent with Patient (Minutes): 90 History Interval history: This is a 21-year-old male with hypothyroidism, seizure disorder (? Pseudoseizure), depression and history of prior dislocated shoulder who presented to emergency department on 09/22 with complaints of dislocated shoulder after falling out of bed earlier in the day. In the ED several attempts were made to reduce the shoulder under moderate sedation however the shoulder appeared to reduce when attempting to place patient in the sling and while ED physician was awaiting Ortho evaluation patient was witnessed to have a seizure and was given Ativan 2 mg x 2 without improvement episode lasted approximately 5 minutes. At this time oxygen saturations were in the 80s and decision was made to intubate for airway protection. Patient was admitted to the hospital service with consult to orthopedics and CCM for acute hypoxic respiratory failure and seizure-like activity. Hospital course to date: 09/23: Patient was sedated on propofol 50 mcg. MRI was ordered however unable to obtain family therefore changes CT head. Neurology consulted. EEG ordered. As needed Ativan ordered. After CT head results which showed no acute acute abnormality patient was extubated by RT at bedside. This evening patient was witnessed to have seizure-like activity x2 and was given Ativan. Patient continued to have seizure-like like activity while EEG was taking place. heat treatment technician stated she did not see any seizure activity associated with jerking motions. Patient will be moved to room across from the nurses station for closer monitoring. Psych consult pending. Hospitalist Physical - Constitutional Vitals: Temp Pulse Resp BP Pulse Ox 101.9 F H 110 H 37 H 115/78 100 09/23/21 16:05 09/23/21 16:00 09/23/21 16:00 09/23/21 16:00 09/23/21 16:00 General appearance: Present: no acute distress, well-nourished - EENT Eyes: Present: PERRL, EOM intact ENT: hearing intact, clear oral mucosa, dentition normal - Neck Neck: Present: normal ROM - Respiratory Respiratory effort: normal Respiratory: bilateral: diminished - Cardiovascular Rhythm: regular Heart Sounds: Present: S1 & S2. Absent: systolic murmur, diastolic murmur - Extremities Extremities: no ischemia, pulses intact, pulses symmetrical, No edema, normal temperature, normal color Extremity abnormal: other (Right arm in sling) Peripheral Pulses: within normal limits - Abdominal General gastrointestinal: soft, non-tender, non-distended, normal bowel sounds - Integumentary Integumentary: Present: warm, dry - Psychiatric Psychiatric: other - Neurologic Neurologic: moves all extremities, other (Intact cough/gag, pupils equal round and reactive.) - Allied Health Allied health notes reviewed: nursing, RT, social work Results - Labs CBC & Chem 7: 09/23/21 04:44 09/23/21 04:44 Labs: Laboratory Last Values WBC 7.5 K/mm3 (4.5-11.0) 09/23/21 04:44 RBC 5.32 M/mm3 (3.65-5.03) H 09/23/21 04:44 Hgb 15.3 gm/dl (11.8-15.2) H 09/23/21 04:44 Hct 44.7 % (35.5-45.6) 09/23/21 04:44 MCV 84 fl (84-94) 09/23/21 04:44 MCH 29 pg (28-32) 09/23/21 04:44 MCHC 34 % (32-34) 09/23/21 04:44 RDW 14.2 % (13.2-15.2) 09/23/21 04:44 Plt Count 104 K/mm3 (140-440) L 09/23/21 04:44 Lymph % (Auto) 19.7 % (13.4-35.0) 09/23/21 04:44 [place] % (Auto) 8.2 % (0.0-7.3) H 09/23/21 04:44 Eos % (Auto) 1.1 % (0.0-4.3) 09/23/21 04:44 Baso % (Auto) 0.7 % (0.0-1.8) 09/23/21 04:44 Lymph # (Auto) 1.5 K/mm3 (1.2-5.4) 09/23/21 04:44 [place] # (Auto) 0.6 K/mm3 (0.0-0.8) 09/23/21 04:44 Eos # (Auto) 0.1 K/mm3 (0.0-0.4) 09/23/21 04:44 Baso # (Auto) 0.1 K/mm3 (0.0-0.1) 09/23/21 04:44 Seg Neutrophils % 70.3 % (40.0-70.0) H 09/23/21 04:44 Seg Neutrophils # 5.3 K/mm3 (1.8-7.7) 09/23/21 04:44 ABG pH 7.376 pH Units (7.350-7.450) 09/23/21 04:00 ABG pCO2 44.8 mm Hg 09/23/21 04:00 ABG pO2 125.0 mm Hg (80.0-90.0) H 09/23/21 04:00 ABG HCO3 25.7 mmol/L (20.0-26.0) 09/23/21 04:00 ABG O2 Saturation 98.3 % (95.0-99.0) 09/23/21 04:00 ABG O2 Content 18.6 (0.0-44) 09/23/21 04:00 ABG Base Excess 0.2 mmol/L (-2.0-3.0) 09/23/21 04:00 ABG Hemoglobin 13.6 gm/dl (14.0-18.0) L 09/23/21 04:00 ABG Carboxyhemoglobin 1.3 % (0.0-5.0) 09/23/21 04:00 ABG Methemoglobin 0.6 % (0.0-1.5) 09/23/21 04:00 Oxyhemoglobin 96.5 % (95.0-99.0) 09/23/21 04:00 FiO2 25 % 09/23/21 04:00 Sodium 140 mmol/L (137-145) 09/23/21 04:44 Potassium 4.2 mmol/L (3.6-5.0) 09/23/21 04:44 Chloride 102.6 mmol/L (98-107) 09/23/21 04:44 Carbon Dioxide 21 mmol/L (22-30) L 09/23/21 04:44 Anion Gap 21 mmol/L 09/23/21 04:44 BUN 14 mg/dL (9-20) 09/23/21 04:44 Creatinine 0.9 mg/dL (0.8-1.3) 09/23/21 04:44 Estimated GFR > 60 ml/min 09/23/21 04:44 BUN/Creatinine Ratio 16 % 09/23/21 04:44 Glucose 81 mg/dL (75-100) 09/23/21 04:44 POC Glucose 74 mg/dL (70-105) 09/23/21 15:57 Calcium 10.0 mg/dL (8.4-10.2) 09/23/21 04:44 Total Bilirubin 0.90 mg/dL (0.1-1.2) 09/23/21 04:44 Direct Bilirubin < 0.2 mg/dL (0-0.2) 09/22/21 18:30 Indirect Bilirubin 0.7 mg/dL 09/22/21 18:30 AST 15 units/L (5-40) 09/23/21 04:44 ALT 7 units/L (7-56) 09/23/21 04:44 Alkaline Phosphatase 70 units/L (35-129) 09/23/21 04:44 Total Protein 6.9 g/dL (6.3-8.2) 09/23/21 04:44 Albumin 4.8 g/dL (3.9-5) 09/23/21 04:44 Albumin/Globulin Ratio 2.3 % 09/23/21 04:44 Urine Color Yellow (Yellow) 09/22/21 19:52 Urine Turbidity Clear (Clear) 09/22/21 19:52 Urine pH 7.5 (5.0-7.0) H 09/22/21 19:52 Ur Specific [place] 1.020 (1.003-1.030) 09/22/21 19:52 Urine Protein 30 mg/dl mg/dL (Negative) 09/22/21 19:52 Urine Glucose (UA) Negative mg/dL (Negative) 09/22/21 19:52 Urine Ketones Trace mg/dL (Negative) 09/22/21 19:52 Urine Blood Negative (Negative) 09/22/21 19:52 Urine Nitrite Negative (Negative) 09/22/21 19:52 Urine Bilirubin Negative (Negative) 09/22/21 19:52 Urine Urobilinogen 2.0 mg/dL (<2.0) 09/22/21 19:52 Ur Leukocyte Esterase Negative (Negative) 09/22/21 19:52 Urine WBC (Auto) 3.0 /HPF (0.0-6.0) 09/22/21 19:52 Urine RBC (Auto) 1.0 /HPF (0.0-6.0) 09/22/21 19:52 U Epithel Cells (Auto) 2.0 /HPF (0-13.0) 09/22/21 19:52 Calcium Oxalate Crystal Few 09/22/21 19:52 Urine Mucus 3+ /HPF 09/22/21 19:52 [place]/IV: Voiding Method Indwelling Catheter Active Medications - Current Medications Current Medications: Generic Name Dose Route Start Last Admin Trade Name Freq PRN Reason Stop Dose Admin Acetaminophen 650 mg 09/22/21 20:39 09/23/21 16:41 Acetaminophen 325 Mg Tab PO 650 mg Q4H PRN Administration Pain MILD(1-3)/Fever >100.5/VALERA Famotidine 20 mg 09/23/21 22:00 Famotidine 20 Mg/2 Ml Inj IV BID SAUL Heparin Sodium (Porcine) 5,000 unit 09/22/21 22:00 09/23/21 10:09 Heparin 5,000 Unit/1 Ml Vial SUB-Q 5,000 unit Q12HR SAUL Administration Hydromorphone HCl 0.5 mg 09/22/21 20:39 Hydromorphone 0.5 Mg/0.5 Ml Inj IV Q3H PRN Pain , Severe (7-10) Levetiracetam 1,500 mg/ 115 mls @ 400 mls/hr 09/23/21 22:00 Dextrose IV Q12HR SAUL Dextrose/Sodium Chloride 1,000 mls @ 42 mls/hr 09/23/21 17:00 09/23/21 16:42 D5/0.45ns IV 42 mls/hr DIRECT SAUL Administration Levothyroxine Sodium 25 mcg 09/23/21 06:00 09/23/21 05:56 Levothyroxine 25 Mcg Tab PO 25 mcg DAILY@0600 SAUL Administration Lorazepam 1 mg 09/23/21 16:52 Lorazepam 2 Mg/Ml Vial IV Q4H PRN Seizures Metoclopramide HCl 10 mg 09/22/21 20:39 Metoclopramide 10 Mg/2 Ml Inj IV Q6H PRN Nausea And Vomiting Morphine Sulfate 2 mg 09/22/21 20:39 Morphine 2 Mg/1 Ml Inj IV Q4H PRN Pain, Moderate (4-6) Ondansetron HCl 4 mg 09/22/21 20:39 Ondansetron 4 Mg/2 Ml Inj IV Q8H PRN Nausea And Vomiting Oxcarbazepine 150 mg 09/22/21 22:00 09/23/21 11:21 Oxcarbazepine 150 Mg Tab PO 150 mg BID SAUL Administration Sertraline HCl 50 mg 09/23/21 10:00 09/23/21 10:10 Sertraline 50 Mg Tab PO 50 mg QDAY SAUL Administration Sodium Chloride 10 ml 09/22/21 22:00 09/23/21 10:10 Sodium Chloride 0.9% 10 Ml Flush Syringe IV 10 ml BID SAUL Administration Sodium Chloride 10 ml 09/22/21 20:39 Sodium Chloride 0.9% 10 Ml Flush Syringe IV PRN PRN LINE FLUSH Valproic Acid 750 mg 09/23/21 10:00 09/23/21 10:09 Valproic Acid 250 Mg/5 Ml Oral Liqd FEEDTUBE 750 mg BID SAUL Administration Nutrition/Malnutrition Assess - Dietary Evaluation Nutrition/Malnutrition Findings: Nutrition Notes Start: 09/23/21 12:32 Freq: Status: Active Protocol: Document 09/23/21 12:32 SHOAIB (Rec: 09/23/21 13:00 SHOAIB [id number]) Nutrition Notes Need for Assessment generated from: MD Order Initial or Follow up Assessment Other Pertinent Diagnosis Status Epilepticus, Hypothyroidism, L-Shoulder dislocation. Current Diet TF-Vital AF 1.2 Fritz @ 40 ml/hr (from D 09/23). Labs/Tests 09/23: CO2 21. Pertinent Medications 09/23: Levothyroxine, Propofol @ 25.038 ml/hr (661 Kcal), others nutritionally unremarkable. Height 5 ft 8 in Weight 83 kg [place] Body Weight (kg) 70.00 BMI 27.8 Intake Prior to Admission Good Weight change and time frame Pt denies having loss body weight [employer]. Weight Status Overweight Subjective/Other Information RD consult for write/manage TF . Pt currently on NPO. Pt is on Mechanical Ventilation, O2 saturation @ 100%, according to Physical Assessment History notes. Pt has missing teeth, according to Physical Assessment History notes. Percent of energy/protein needs met: Pt currently on NPO. Prescribed TF-Vital AF 1.2 Fritz @ 40 ml/hr provides for energy/protein needs (1,165 Kcal/73 g) during LOS, 64% Kcal; 100% AA. Including 661 Kcal from Propofol; 100% Kcal; 100% AA. Burn Absent Trauma Absent GI Symptoms None Food Allergy Yes Skin Integrity/Comment Assessment WNL. Current % PO Other Minimum of two criteria No #1 Nutrition Diagnosis Inadequate oral intake Etiology Pt is on Mechanical Ventilation. As Evidenced by Signs and Symptoms Pt currently on NPO. Is patient on ventilator? Yes Is Patient Ambulatory and/or Out of Bed No REE-([facility]-confined to bed) 2166.516 Kcal/Kg value to use for calculation 22 Approximate Energy Requirements Using 1826 kcal/Kg Calculation Used for Recommendations Kcal/kg Additional Notes Protein: 0.8-1 g/Kg ABW; 66-83 g/day. Fluids: 1 ml/Kcal, or as per MD. Nutrition Intervention Nutrition Support: Start TF-Vital AF 1.2 Fritz @ 40 ml/hr. Flush: 170 ml water Q 4 hr, or as per MD. Kcal 1,165 Protein (gm) 73 Carbohydrates (gm) 107 Fat (gm) 52 Fluid (mL) 787 Fiber (gm) 5 % RDI: 64% Kcal; 100% AA. Goal #1 Provide at least 75% of energy /protein needs through Enteral Feeding during LOS. Goal #2 Maintain body weight within +/ -3% of admission body weight during LOS. Follow-Up By: 09/25/21 Additional Comments Start monitoring TF tolerance and BM. <DEVYN SARKAR - Last Filed: 09/28/21 10:26> Assessment and Plan Assessment and plan: I saw and evaluated the patient. Discussed with the nurse practitioner and agree with their findings and plan as documented in this note. Hospitalist Physical - Constitutional Vitals: Temp Pulse Resp BP Pulse Ox 97.9 F 81 18 148/82 95 09/25/21 11:03 09/25/21 11:03 09/25/21 11:03 09/25/21 11:03 09/25/21 11:03 Results - Labs CBC & Chem 7: 09/25/21 14:38 09/24/21 04:19 Labs: Laboratory Last Values WBC 6.0 K/mm3 (4.5-11.0) 09/25/21 14:38 RBC 4.66 M/mm3 (3.65-5.03) 09/25/21 14:38 Hgb 13.1 gm/dl (11.8-15.2) 09/25/21 14:38 Hct 39.2 % (35.5-45.6) 09/25/21 14:38 MCV 84 fl (84-94) 09/25/21 14:38 MCH 28 pg (28-32) 09/25/21 14:38 MCHC 34 % (32-34) 09/25/21 14:38 RDW 14.6 % (13.2-15.2) 09/25/21 14:38 Plt Count 111 K/mm3 (140-440) L 09/25/21 14:38 Lymph % (Auto) 19.7 % (13.4-35.0) 09/23/21 04:44 [place] % (Auto) 8.2 % (0.0-7.3) H 09/23/21 04:44 Eos % (Auto) 1.1 % (0.0-4.3) 09/23/21 04:44 Baso % (Auto) 0.7 % (0.0-1.8) 09/23/21 04:44 Lymph # (Auto) 1.5 K/mm3 (1.2-5.4) 09/23/21 04:44 [place] # (Auto) 0.6 K/mm3 (0.0-0.8) 09/23/21 04:44 Eos # (Auto) 0.1 K/mm3 (0.0-0.4) 09/23/21 04:44 Baso # (Auto) 0.1 K/mm3 (0.0-0.1) 09/23/21 04:44 Seg Neutrophils % 70.3 % (40.0-70.0) H 09/23/21 04:44 Seg Neutrophils # 5.3 K/mm3 (1.8-7.7) 09/23/21 04:44 ABG pH 7.376 pH Units (7.350-7.450) 09/23/21 04:00 ABG pCO2 44.8 mm Hg 09/23/21 04:00 ABG pO2 125.0 mm Hg (80.0-90.0) H 09/23/21 04:00 ABG HCO3 25.7 mmol/L (20.0-26.0) 09/23/21 04:00 ABG O2 Saturation 98.3 % (95.0-99.0) 09/23/21 04:00 ABG O2 Content 18.6 (0.0-44) 09/23/21 04:00 ABG Base Excess 0.2 mmol/L (-2.0-3.0) 09/23/21 04:00 ABG Hemoglobin 13.6 gm/dl (14.0-18.0) L 09/23/21 04:00 ABG Carboxyhemoglobin 1.3 % (0.0-5.0) 09/23/21 04:00 ABG Methemoglobin 0.6 % (0.0-1.5) 09/23/21 04:00 Oxyhemoglobin 96.5 % (95.0-99.0) 09/23/21 04:00 FiO2 25 % 09/23/21 04:00 Sodium 140 mmol/L (137-145) 09/24/21 04:19 Potassium 3.6 mmol/L (3.6-5.0) 09/24/21 04:19 Chloride 105.9 mmol/L (98-107) 09/24/21 04:19 Carbon Dioxide 23 mmol/L (22-30) 09/24/21 04:19 Anion Gap 15 mmol/L 09/24/21 04:19 BUN 11 mg/dL (9-20) 09/24/21 04:19 Creatinine 0.9 mg/dL (0.8-1.3) 09/24/21 04:19 Estimated GFR > 60 ml/min 09/24/21 04:19 BUN/Creatinine Ratio 12 % 09/24/21 04:19 Glucose 87 mg/dL (75-100) 09/24/21 04:19 POC Glucose 74 mg/dL (70-105) 09/23/21 15:57 Calcium 9.2 mg/dL (8.4-10.2) 09/24/21 04:19 Total Bilirubin 0.90 mg/dL (0.1-1.2) 09/23/21 04:44 Direct Bilirubin < 0.2 mg/dL (0-0.2) 09/22/21 18:30 Indirect Bilirubin 0.7 mg/dL 09/22/21 18:30 AST 15 units/L (5-40) 09/23/21 04:44 ALT 7 units/L (7-56) 09/23/21 04:44 Alkaline Phosphatase 70 units/L (35-129) 09/23/21 04:44 Total Protein 6.9 g/dL (6.3-8.2) 09/23/21 04:44 Albumin 4.8 g/dL (3.9-5) 09/23/21 04:44 Albumin/Globulin Ratio 2.3 % 09/23/21 04:44 Prolactin 123.4 ng/mL () 09/22/21 18:30 Urine Color Yellow (Yellow) 09/22/21 19:52 Urine Turbidity Clear (Clear) 09/22/21 19:52 Urine pH 7.5 (5.0-7.0) H 09/22/21 19:52 Ur Specific [place] 1.020 (1.003-1.030) 09/22/21 19:52 Urine Protein 30 mg/dl mg/dL (Negative) 09/22/21 19:52 Urine Glucose (UA) Negative mg/dL (Negative) 09/22/21 19:52 Urine Ketones Trace mg/dL (Negative) 09/22/21 19:52 Urine Blood Negative (Negative) 09/22/21 19:52 Urine Nitrite Negative (Negative) 09/22/21 19:52 Urine Bilirubin Negative (Negative) 09/22/21 19:52 Urine Urobilinogen 2.0 mg/dL (<2.0) 09/22/21 19:52 Ur Leukocyte Esterase Negative (Negative) 09/22/21 19:52 Urine WBC (Auto) 3.0 /HPF (0.0-6.0) 09/22/21 19:52 Urine RBC (Auto) 1.0 /HPF (0.0-6.0) 09/22/21 19:52 U Epithel Cells (Auto) 2.0 /HPF (0-13.0) 09/22/21 19:52 Calcium Oxalate Crystal Few 09/22/21 19:52 Urine Mucus 3+ /HPF 09/22/21 19:52 Valproic Acid 102.2 ug/mL (50-100) H 09/24/21 11:09 Coronavirus (PCR) Negative (Negative) 09/25/21 10:45 Microbiology: Microbiology 09/24/21 07:58 Peripheral/Venous Blood Culture - Preliminary Bacillus Species 09/24/21 07:58 Peripheral/Venous Blood Culture - Preliminary NO GROWTH AFTER 72 HOURS 09/24/21 11:28 Peripheral/Venous Blood Culture - Preliminary NO GROWTH AFTER 72 HOURS 09/24/21 11:28 Peripheral/Venous Blood Culture - Preliminary NO GROWTH AFTER 72 HOURS [place]/IV: Voiding Method Urinal Nutrition/Malnutrition Assess - Dietary Evaluation Nutrition/Malnutrition Findings: Nutrition Notes Start: 09/23/21 12:32 Freq: Status: Discharge Protocol: Document 09/25/21 12:03 SHOAIB (Rec: 09/25/21 12:22 SHOAIB [id number]) Nutrition Notes Initial or Follow up Brief Note Other Pertinent Diagnosis Pseudoseizure, Tachicardia, Depression,Hypothyroidism, L- Shoulder dislocati Current Diet Regular Diet (since B 09/24). Height 5 ft 8 in Weight 83 kg [place] Body Weight (kg) 70.00 BMI 27.8 Weight change and time frame No body weight change reported in 2 days. Weight Status Overweight Subjective/Other Information RD consult for routine F/U on dietary advancement. Diet change to PO, Pt's PO intake of meals has been Poor (25%), according to ADL notes, however, RN reports that pt asked for snaks and drinks after seizure episode and tolerated diet well. Pt was extubated on 09/23, Pt is now on Room Air, O2 saturation @ 96%, according to Physical Assessment History notes. Bedside swallow screen passed on 09/23, according to Swallow Screen Report notes. Percent of energy/protein needs met: Prescribed Regular Diet provides for energy/protein needs (2,289 Kcal/89 g) during LOS. #1 Nutrition Diagnosis Inadequate oral intake Comments: Pt was extubated on 09/23, Pt is now on Room Air, O2 saturation @ 96%, according to Physical Assessment History notes. Bedside swallow screen passed on 09/23, according to Swallow Screen Report notes. Diagnosis Progress(for reassessment Resolved documentation) Is patient on ventilator? No Is Patient Ambulatory and/or Out of Bed Yes REE-([facility]-ambulatory/OOB) [ 2805.850 [id number]] Kcal/Kg value to use for calculation 22 Approximate Energy Requirements Using 1826 kcal/Kg Calculation Used for Recommendations Kcal/kg Additional Notes Protein: 0.8-1 g/Kg ABW; 66-83 g/day. Fluids: 1 ml/Kcal, or as per MD. Nutrition Intervention Change Diet Order: Continue Regular Diet. Nutrition Support: Discontinued. Goal #1 Adjust the dietary intervention to better serve Pt's needs and clinical conditions during LOS. Goal #2 Maintain body weight within +/ -3% of admission body weight during LOS. Follow-Up By: 10/01/21 Additional Comments Continue monitoring food tolerance, %PO intake of meals , and BM.
[2021-09-23] MEDS: ACETAMINOPHEN 650 MG RECT SUPP PR PRN (19:54)
[2021-09-23] MEDS: levETIRAcetam 1,500 MG in DEXTROSE 5% IN WATER 100 ML IV SCH (21:53)
[2021-09-24] MEDS: FAMOTIDINE 20 MG/2 ML INJ IV SCH ×2 (02:15→11:30)
[2021-09-24 05:14] LABS: Hematocrit 42.9 % (35.5-45.6); Hemoglobin 14.2 gm/dl (11.8-15.2); Mean Corpuscular HGB Conc 33 % (32-34); Mean Corpuscular Volume 84 fl (84-94); Platelet Count 118 K/mm3 (140-440); Red Blood Count 5.09 M/mm3 (3.65-5.03); Red Cell Distribution Width 14.4 % (13.2-15.2)
[2021-09-24 05:22] LABS: BUN/Creatinine Ratio 12; Blood Urea Nitrogen 11 mg/dL (9-20); Calcium 9.2 mg/dL (8.4-10.2); Hemolysis Index 12
[2021-09-24] MEDS: LEVOTHYROXINE 25 MCG TAB PO SCH (05:32)
[2021-09-24] MEDS: levETIRAcetam 1,500 MG in DEXTROSE 5% IN WATER 100 ML IV SCH (09:22)
[2021-09-24] MEDS: VALPROIC ACID 250 MG/5 ML ORAL LIQD FEEDTUBE SCH (09:24)
[2021-09-24] MEDS: ACETAMINOPHEN 325 MG TAB PO PRN ×2 (09:25→20:13)
[2021-09-24] MEDS: HEPARIN 5,000 UNIT/1 ML VIAL SUB-Q SCH ×2 (09:25→23:16)
[2021-09-24] MEDS: SERTRALINE 50 MG TAB PO SCH (09:25)
[2021-09-24] MEDS: OXcarbazepine 150 MG TAB PO SCH ×2 (09:25→23:29)
--- NOTE | 2021-09-24 13:16 | Progress Note ---
Assessment and Plan 21 y/o male with seizure like activity, intubated for airway protection with dislocated shoulder, corrected 09/24/21: Psych Consult, transfer to floor with sitter. 1. Await head CT results 2. If negative, discontinue sedation and extubate 3. Patient apparently goes to multiple hospitals throughout the city and has severe psych issues (swallows foreign objects, inserts objects, pseudoseizures, etc). Once extubated, psych eval, sitter needed. CCT 31 minutes. Subjective Date of service: 09/24/21 Interval history: Successful extubation on yesterday. Objective Vital Signs - 12hr 09/24/21 09/24/21 09/24/21 02:00 03:00 04:00 Temperature 99.4 F Pulse Rate 87 92 H 98 H Pulse Rate [ 95 H From Monitor] Respiratory 28 H 28 H 30 H Rate Blood Pressure 131/58 115/71 105/65 O2 Sat by Pulse 97 95 94 Oximetry 09/24/21 09/24/21 09/24/21 05:00 06:00 07:00 Temperature Pulse Rate 102 H 106 H 128 H Pulse Rate [ From Monitor] Respiratory 34 H 31 H 16 Rate Blood Pressure 111/59 113/56 113/56 O2 Sat by Pulse 92 95 Oximetry 09/24/21 09/24/21 09/24/21 08:00 08:40 09:00 Temperature 101.7 F H Pulse Rate 93 H 95 H Pulse Rate [ 93 H From Monitor] Respiratory 37 H 33 H Rate Blood Pressure 125/69 130/61 O2 Sat by Pulse 98 96 Oximetry 09/24/21 09/24/21 09/24/21 10:00 11:00 12:00 Temperature 99.2 F Pulse Rate 113 H 92 H 94 H Pulse Rate [ 87 From Monitor] Respiratory 29 H 26 H 22 Rate Blood Pressure 122/66 132/59 124/63 O2 Sat by Pulse 95 95 93 Oximetry 09/24/21 13:00 Temperature Pulse Rate 85 Pulse Rate [ From Monitor] Respiratory 16 Rate Blood Pressure 136/71 O2 Sat by Pulse Oximetry Constitutional: no acute distress, asleep Eyes: non-icteric ENT: other (orally intubated and sedated) Neck: supple Effort: normal Ascultation: Bilateral: clear CBC and BMP: 09/24/21 04:19 09/24/21 04:19 ABG, PT/INR, D-dimer: ABG ABG pH 7.376 pH Units (7.350-7.450) 09/23/21 04:00 ABG pCO2 44.8 mm Hg 09/23/21 04:00 ABG pO2 125.0 mm Hg (80.0-90.0) H 09/23/21 04:00 ABG O2 Saturation 98.3 % (95.0-99.0) 09/23/21 04:00 Abnormal lab findings: Abnormal Labs 09/22/21 09/22/21 09/22/21 18:30 18:30 19:08 WBC RBC 5.47 H Hgb 15.4 H Hct 46.3 H Plt Count [place] % (Auto) 7.5 H Seg Neutrophils % ABG pH 7.330 L ABG pO2 185.7 H ABG O2 Saturation 99.1 H ABG Base Excess -2.6 L ABG Hemoglobin Carbon Dioxide 21 L Glucose 110 H Albumin 5.1 H Urine pH Valproic Acid 09/22/21 09/23/21 09/23/21 19:52 04:00 04:44 WBC RBC 5.32 H Hgb 15.3 H Hct Plt Count 104 L [place] % (Auto) 8.2 H Seg Neutrophils % 70.3 H ABG pH ABG pO2 125.0 H ABG O2 Saturation ABG Base Excess ABG Hemoglobin 13.6 L Carbon Dioxide Glucose Albumin Urine pH 7.5 H Valproic Acid 09/23/21 09/24/21 09/24/21 04:44 04:19 11:09 WBC 11.4 H RBC 5.09 H Hgb Hct Plt Count 118 L [place] % (Auto) Seg Neutrophils % ABG pH ABG pO2 ABG O2 Saturation ABG Base Excess ABG Hemoglobin Carbon Dioxide 21 L Glucose Albumin Urine pH Valproic Acid 102.2 H
--- NOTE | 2021-09-24 15:29 | Progress Note ---
<PANCHOEVARISTOJewell - Last Filed: 09/24/21 15:25> Assessment and Plan Assessment and plan: This is a 21-year-old male with hypothyroidism, pseudoseizures, depression, SI and self inflicted dislocated shoulder admitted with acute hypoxic respiratory distress, seizure activity and dislocated shoulder Neuro: h/o pseudoseizures, depression, self inflicted shoulder dislocation -Resume home antiepileptic medications: Keppra, Depakene, Oxycarbamazepine -Reorientation as needed -Maintain sleep-wake cycle -aspiration/seizure precautions -As needed analgesia -CT head with no acute abnormality -Neurology consulted, appreciate recommendations -EEG pending -Psych consulted, appreciate recommendations Cardiac: Sinus tachycardia -Blood pressure monitoring per protocol Respiratory: Acute hypoxic respiratory failure (resolved) -CCM consulted, appreciate recommendations -Intubated in the ED on 09/22 for airway protection with 7.50 ETT at 24 the lips a nd extubated 09/23 -Currently on NC -Supplemental oxygen as needed -Pulmonary hygiene -SPO2 monitoring per protocol GI: NAD -24 hours -767 mL -PPI -Regular diet : NAD -Monitor intake and output -Renally dose medications -Avoid nephrotoxic medications -Trend BMP ID: Intermittent fevers -As needed Tylenol -BC 09/24 -UA (-) -Monitor WBC and temperature curve Endo: h/o Hypothyroidism -Resume home Synthroid -Avoid hypoglycemia Heme: NAD -Heparin subcu -Trend CBC -SCDs to BLE while in bed The high probability of a clinically significant, sudden or life threatening deterioration of the [neuro/pulm] system(s) required my full and direct attention, intervention and personal management. The aggregate critical care time was [60] minutes. This time is in addition to time spent performing reported procedures but includes the following: [x] Data Review and interpretation [x] Patient assessment and monitoring of vital signs [x] Documentation [x] Medication orders and management Disposition Plan: transfer to floor Total Time Spent with Patient (Minutes): 60 History Interval history: This is a 21-year-old male with hypothyroidism, seizure disorder (? Pseudoseizure), depression and history of prior dislocated shoulder who presented to emergency department on 09/22 with complaints of dislocated shoulder after falling out of bed earlier in the day. In the ED several attempts were made to reduce the shoulder under moderate sedation however the shoulder appeared to reduce when attempting to place patient in the sling and while ED physician was awaiting Ortho evaluation patient was witnessed to have a seizure and was given Ativan 2 mg x 2 without improvement episode lasted approximately 5 minutes. At this time oxygen saturations were in the 80s and decision was made to intubate for airway protection. Patient was admitted to the hospital service with consult to orthopedics and CCM for acute hypoxic respiratory failure and seizure-like activity. Hospital course to date: 09/23: Patient was sedated on propofol 50 mcg. MRI was ordered however unable to obtain family therefore changes CT head. Neurology consulted. EEG ordered. As needed Ativan ordered. After CT head results which showed no acute acute abnormality patient was extubated by RT at bedside. This evening patient was witnessed to have seizure-like activity x2 and was given Ativan. Patient continued to have seizure-like like activity while EEG was taking place. public health sanitarian technician stated she did not see any seizure activity associated with jerking motions. Patient will be moved to room across from the nurses station for closer monitoring. Psych consult pending. 09/24: FADI overnight. Transfer to floor with sitter, preferably close to nsg station. Awaiting psych input. No seizure activity noted. Hospitalist Physical - Constitutional Vitals: Temp Pulse Resp BP Pulse Ox 99.2 F 95 H 24 127/72 93 09/24/21 12:00 09/24/21 15:01 09/24/21 15:01 09/24/21 15:01 09/24/21 15:01 General appearance: Present: no acute distress, well-nourished - EENT Eyes: Present: PERRL, EOM intact ENT: hearing intact, clear oral mucosa, dentition normal - Neck Neck: Present: normal ROM - Respiratory Respiratory effort: normal Respiratory: bilateral: CTA - Extremities Extremities: no ischemia, pulses intact, pulses symmetrical, No edema, normal temperature, normal color, Full ROM Peripheral Pulses: within normal limits - Abdominal General gastrointestinal: soft, non-tender, normal bowel sounds - Integumentary Integumentary: Present: warm, dry - Psychiatric Psychiatric: cooperative - Neurologic Neurologic: CNII-XII intact, no focal deficits, moves all extremities - Allied Health Allied health notes reviewed: nursing, RT, social work Results - Labs CBC & Chem 7: 09/24/21 04:19 09/24/21 04:19 Labs: Laboratory Last Values WBC 11.4 K/mm3 (4.5-11.0) H 09/24/21 04:19 RBC 5.09 M/mm3 (3.65-5.03) H 09/24/21 04:19 Hgb 14.2 gm/dl (11.8-15.2) 09/24/21 04:19 Hct 42.9 % (35.5-45.6) 09/24/21 04:19 MCV 84 fl (84-94) 09/24/21 04:19 MCH 28 pg (28-32) 09/24/21 04:19 MCHC 33 % (32-34) 09/24/21 04:19 RDW 14.4 % (13.2-15.2) 09/24/21 04:19 Plt Count 118 K/mm3 (140-440) L 09/24/21 04:19 Lymph % (Auto) 19.7 % (13.4-35.0) 09/23/21 04:44 [place] % (Auto) 8.2 % (0.0-7.3) H 09/23/21 04:44 Eos % (Auto) 1.1 % (0.0-4.3) 09/23/21 04:44 Baso % (Auto) 0.7 % (0.0-1.8) 09/23/21 04:44 Lymph # (Auto) 1.5 K/mm3 (1.2-5.4) 09/23/21 04:44 [place] # (Auto) 0.6 K/mm3 (0.0-0.8) 09/23/21 04:44 Eos # (Auto) 0.1 K/mm3 (0.0-0.4) 09/23/21 04:44 Baso # (Auto) 0.1 K/mm3 (0.0-0.1) 09/23/21 04:44 Seg Neutrophils % 70.3 % (40.0-70.0) H 09/23/21 04:44 Seg Neutrophils # 5.3 K/mm3 (1.8-7.7) 09/23/21 04:44 ABG pH 7.376 pH Units (7.350-7.450) 09/23/21 04:00 ABG pCO2 44.8 mm Hg 09/23/21 04:00 ABG pO2 125.0 mm Hg (80.0-90.0) H 09/23/21 04:00 ABG HCO3 25.7 mmol/L (20.0-26.0) 09/23/21 04:00 ABG O2 Saturation 98.3 % (95.0-99.0) 09/23/21 04:00 ABG O2 Content 18.6 (0.0-44) 09/23/21 04:00 ABG Base Excess 0.2 mmol/L (-2.0-3.0) 09/23/21 04:00 ABG Hemoglobin 13.6 gm/dl (14.0-18.0) L 09/23/21 04:00 ABG Carboxyhemoglobin 1.3 % (0.0-5.0) 09/23/21 04:00 ABG Methemoglobin 0.6 % (0.0-1.5) 09/23/21 04:00 Oxyhemoglobin 96.5 % (95.0-99.0) 09/23/21 04:00 FiO2 25 % 09/23/21 04:00 Sodium 140 mmol/L (137-145) 09/24/21 04:19 Potassium 3.6 mmol/L (3.6-5.0) 09/24/21 04:19 Chloride 105.9 mmol/L (98-107) 09/24/21 04:19 Carbon Dioxide 23 mmol/L (22-30) 09/24/21 04:19 Anion Gap 15 mmol/L 09/24/21 04:19 BUN 11 mg/dL (9-20) 09/24/21 04:19 Creatinine 0.9 mg/dL (0.8-1.3) 09/24/21 04:19 Estimated GFR > 60 ml/min 09/24/21 04:19 BUN/Creatinine Ratio 12 % 09/24/21 04:19 Glucose 87 mg/dL (75-100) 09/24/21 04:19 POC Glucose 74 mg/dL (70-105) 09/23/21 15:57 Calcium 9.2 mg/dL (8.4-10.2) 09/24/21 04:19 Total Bilirubin 0.90 mg/dL (0.1-1.2) 09/23/21 04:44 Direct Bilirubin < 0.2 mg/dL (0-0.2) 09/22/21 18:30 Indirect Bilirubin 0.7 mg/dL 09/22/21 18:30 AST 15 units/L (5-40) 09/23/21 04:44 ALT 7 units/L (7-56) 09/23/21 04:44 Alkaline Phosphatase 70 units/L (35-129) 09/23/21 04:44 Total Protein 6.9 g/dL (6.3-8.2) 09/23/21 04:44 Albumin 4.8 g/dL (3.9-5) 09/23/21 04:44 Albumin/Globulin Ratio 2.3 % 09/23/21 04:44 Urine Color Yellow (Yellow) 09/22/21 19:52 Urine Turbidity Clear (Clear) 09/22/21 19:52 Urine pH 7.5 (5.0-7.0) H 09/22/21 19:52 Ur Specific [place] 1.020 (1.003-1.030) 09/22/21 19:52 Urine Protein 30 mg/dl mg/dL (Negative) 09/22/21 19:52 Urine Glucose (UA) Negative mg/dL (Negative) 09/22/21 19:52 Urine Ketones Trace mg/dL (Negative) 09/22/21 19:52 Urine Blood Negative (Negative) 09/22/21 19:52 Urine Nitrite Negative (Negative) 09/22/21 19:52 Urine Bilirubin Negative (Negative) 09/22/21 19:52 Urine Urobilinogen 2.0 mg/dL (<2.0) 09/22/21 19:52 Ur Leukocyte Esterase Negative (Negative) 09/22/21 19:52 Urine WBC (Auto) 3.0 /HPF (0.0-6.0) 09/22/21 19:52 Urine RBC (Auto) 1.0 /HPF (0.0-6.0) 09/22/21 19:52 U Epithel Cells (Auto) 2.0 /HPF (0-13.0) 09/22/21 19:52 Calcium Oxalate Crystal Few 09/22/21 19:52 Urine Mucus 3+ /HPF 09/22/21 19:52 Valproic Acid 102.2 ug/mL (50-100) H 09/24/21 11:09 Microbiology: Microbiology 09/24/21 07:58 Peripheral/Venous Blood Culture - Preliminary Culture in Progress 09/24/21 07:58 Peripheral/Venous Blood Culture - Preliminary Culture in Progress 09/24/21 11:28 Peripheral/Venous Blood Culture - Preliminary Culture in Progress 09/24/21 11:28 Peripheral/Venous Blood Culture - Preliminary Culture in Progress [place]/IV: Voiding Method Indwelling Catheter Active Medications - Current Medications Current Medications: Generic Name Dose Route Start Last Admin Trade Name Freq PRN Reason Stop Dose Admin Acetaminophen 650 mg 09/22/21 20:39 09/24/21 09:25 Acetaminophen 325 Mg Tab PO 650 mg Q4H PRN Administration Pain MILD(1-3)/Fever >100.5/VALERA Acetaminophen 650 mg 09/23/21 19:42 09/23/21 19:54 Acetaminophen 650 Mg Rect Supp MD 650 mg Q4H PRN Administration Fever >101 Famotidine 20 mg 09/23/21 22:00 09/24/21 11:30 Famotidine 20 Mg/2 Ml Inj IV Not Given BID SAUL Heparin Sodium (Porcine) 5,000 unit 09/22/21 22:00 09/24/21 09:25 Heparin 5,000 Unit/1 Ml Vial SUB-Q 5,000 unit Q12HR SAUL Administration Hydromorphone HCl 0.5 mg 09/22/21 20:39 Hydromorphone 0.5 Mg/0.5 Ml Inj IV Q3H PRN Pain , Severe (7-10) Levetiracetam 1,500 mg/ 115 mls @ 400 mls/hr 09/23/21 22:00 09/24/21 09:22 Dextrose IV 400 mls/hr Q12HR SAUL Administration Levothyroxine Sodium 25 mcg 09/23/21 06:00 09/24/21 05:32 Levothyroxine 25 Mcg Tab PO 25 mcg DAILY@0600 SAUL Administration Lorazepam 1 mg 09/23/21 16:52 09/23/21 18:16 Lorazepam 2 Mg/Ml Vial IV 1 mg Q4H PRN Administration Seizures Metoclopramide HCl 10 mg 09/22/21 20:39 Metoclopramide 10 Mg/2 Ml Inj IV Q6H PRN Nausea And Vomiting Morphine Sulfate 2 mg 09/22/21 20:39 Morphine 2 Mg/1 Ml Inj IV Q4H PRN Pain, Moderate (4-6) Ondansetron HCl 4 mg 09/22/21 20:39 Ondansetron 4 Mg/2 Ml Inj IV Q8H PRN Nausea And Vomiting Oxcarbazepine 150 mg 09/22/21 22:00 09/24/21 09:25 Oxcarbazepine 150 Mg Tab PO 150 mg BID SAUL Administration Sertraline HCl 50 mg 09/23/21 10:00 09/24/21 09:25 Sertraline 50 Mg Tab PO 50 mg QDAY SAUL Administration Sodium Chloride 10 ml 09/22/21 22:00 09/24/21 09:25 Sodium Chloride 0.9% 10 Ml Flush Syringe IV 10 ml BID SAUL Administration Sodium Chloride 10 ml 09/22/21 20:39 Sodium Chloride 0.9% 10 Ml Flush Syringe IV PRN PRN LINE FLUSH Valproic Acid 750 mg 09/23/21 10:00 09/24/21 09:24 Valproic Acid 250 Mg/5 Ml Oral Liqd FEEDTUBE 750 mg BID SAUL Administration Nutrition/Malnutrition Assess - Dietary Evaluation Nutrition/Malnutrition Findings: Nutrition Notes Start: 09/23/21 12:32 Freq: Status: Active Protocol: Document 09/23/21 12:32 SHOAIB (Rec: 09/23/21 13:00 SHOAIB [id number]) Nutrition Notes Need for Assessment generated from: MD Order Initial or Follow up Assessment Other Pertinent Diagnosis Status Epilepticus, Hypothyroidism, L-Shoulder dislocation. Current Diet TF-Vital AF 1.2 Fritz @ 40 ml/hr (from D 09/23). Labs/Tests 09/23: CO2 21. Pertinent Medications 09/23: Levothyroxine, Propofol @ 25.038 ml/hr (661 Kcal), others nutritionally unremarkable. 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 Weight Status Overweight Subjective/Other Information RD consult for write/manage TF . Pt currently on NPO. Pt is on Mechanical Ventilation, O2 saturation @ 100%, according to Physical Assessment History notes. Pt has missing teeth, according to Physical Assessment History notes. Percent of energy/protein needs met: Pt currently on NPO. Prescribed TF-Vital AF 1.2 Fritz @ 40 ml/hr provides for energy/protein needs (1,165 Kcal/73 g) during LOS, 64% Kcal; 100% AA. Including 661 Kcal from Propofol; 100% Kcal; 100% AA. Burn Absent Trauma Absent GI Symptoms None Food Allergy Yes Skin Integrity/Comment Assessment WNL. Current % PO Other Minimum of two criteria No #1 Nutrition Diagnosis Inadequate oral intake Etiology Pt is on Mechanical Ventilation. As Evidenced by Signs and Symptoms Pt currently on NPO. Is patient on ventilator? Yes Is Patient Ambulatory and/or Out of Bed No REE-([place]-confined to bed) 2166.516 Kcal/Kg value to use for calculation 22 Approximate Energy Requirements Using 1826 kcal/Kg Calculation Used for Recommendations Kcal/kg Additional Notes Protein: 0.8-1 g/Kg ABW; 66-83 g/day. Fluids: 1 ml/Kcal, or as per MD. Nutrition Intervention Nutrition Support: Start TF-Vital AF 1.2 Fritz @ 40 ml/hr. Flush: 170 ml water Q 4 hr, or as per MD. Kcal 1,165 Protein (gm) 73 Carbohydrates (gm) 107 Fat (gm) 52 Fluid (mL) 787 Fiber (gm) 5 % RDI: 64% Kcal; 100% AA. Goal #1 Provide at least 75% of energy /protein needs through Enteral Feeding during LOS. Goal #2 Maintain body weight within +/ -3% of admission body weight during LOS. Follow-Up By: 09/25/21 Additional Comments Start monitoring TF tolerance and BM. <DEVYN SARKAR - Last Filed: 09/28/21 10:20> Assessment and Plan Assessment and plan: I saw and evaluated the patient. Discussed with the nurse practitioner and agree with their findings and plan as documented in this note. Hospitalist Physical - Constitutional Vitals: Temp Pulse Resp BP Pulse Ox 97.9 F 81 18 148/82 95 09/25/21 11:03 09/25/21 11:03 09/25/21 11:03 09/25/21 11:03 09/25/21 11:03 Results - Labs CBC & Chem 7: 09/25/21 14:38 09/24/21 04:19 Labs: Laboratory Last Values WBC 6.0 K/mm3 (4.5-11.0) 09/25/21 14:38 RBC 4.66 M/mm3 (3.65-5.03) 09/25/21 14:38 Hgb 13.1 gm/dl (11.8-15.2) 09/25/21 14:38 Hct 39.2 % (35.5-45.6) 09/25/21 14:38 MCV 84 fl (84-94) 09/25/21 14:38 MCH 28 pg (28-32) 09/25/21 14:38 MCHC 34 % (32-34) 09/25/21 14:38 RDW 14.6 % (13.2-15.2) 09/25/21 14:38 Plt Count 111 K/mm3 (140-440) L 09/25/21 14:38 Lymph % (Auto) 19.7 % (13.4-35.0) 09/23/21 04:44 [place] % (Auto) 8.2 % (0.0-7.3) H 09/23/21 04:44 Eos % (Auto) 1.1 % (0.0-4.3) 09/23/21 04:44 Baso % (Auto) 0.7 % (0.0-1.8) 09/23/21 04:44 Lymph # (Auto) 1.5 K/mm3 (1.2-5.4) 09/23/21 04:44 [place] # (Auto) 0.6 K/mm3 (0.0-0.8) 09/23/21 04:44 Eos # (Auto) 0.1 K/mm3 (0.0-0.4) 09/23/21 04:44 Baso # (Auto) 0.1 K/mm3 (0.0-0.1) 09/23/21 04:44 Seg Neutrophils % 70.3 % (40.0-70.0) H 09/23/21 04:44 Seg Neutrophils # 5.3 K/mm3 (1.8-7.7) 09/23/21 04:44 ABG pH 7.376 pH Units (7.350-7.450) 09/23/21 04:00 ABG pCO2 44.8 mm Hg 09/23/21 04:00 ABG pO2 125.0 mm Hg (80.0-90.0) H 09/23/21 04:00 ABG HCO3 25.7 mmol/L (20.0-26.0) 09/23/21 04:00 ABG O2 Saturation 98.3 % (95.0-99.0) 09/23/21 04:00 ABG O2 Content 18.6 (0.0-44) 09/23/21 04:00 ABG Base Excess 0.2 mmol/L (-2.0-3.0) 09/23/21 04:00 ABG Hemoglobin 13.6 gm/dl (14.0-18.0) L 09/23/21 04:00 ABG Carboxyhemoglobin 1.3 % (0.0-5.0) 09/23/21 04:00 ABG Methemoglobin 0.6 % (0.0-1.5) 09/23/21 04:00 Oxyhemoglobin 96.5 % (95.0-99.0) 09/23/21 04:00 FiO2 25 % 09/23/21 04:00 Sodium 140 mmol/L (137-145) 09/24/21 04:19 Potassium 3.6 mmol/L (3.6-5.0) 09/24/21 04:19 Chloride 105.9 mmol/L (98-107) 09/24/21 04:19 Carbon Dioxide 23 mmol/L (22-30) 09/24/21 04:19 Anion Gap 15 mmol/L 09/24/21 04:19 BUN 11 mg/dL (9-20) 09/24/21 04:19 Creatinine 0.9 mg/dL (0.8-1.3) 09/24/21 04:19 Estimated GFR > 60 ml/min 09/24/21 04:19 BUN/Creatinine Ratio 12 % 09/24/21 04:19 Glucose 87 mg/dL (75-100) 09/24/21 04:19 POC Glucose 74 mg/dL (70-105) 09/23/21 15:57 Calcium 9.2 mg/dL (8.4-10.2) 09/24/21 04:19 Total Bilirubin 0.90 mg/dL (0.1-1.2) 09/23/21 04:44 Direct Bilirubin < 0.2 mg/dL (0-0.2) 09/22/21 18:30 Indirect Bilirubin 0.7 mg/dL 09/22/21 18:30 AST 15 units/L (5-40) 09/23/21 04:44 ALT 7 units/L (7-56) 09/23/21 04:44 Alkaline Phosphatase 70 units/L (35-129) 09/23/21 04:44 Total Protein 6.9 g/dL (6.3-8.2) 09/23/21 04:44 Albumin 4.8 g/dL (3.9-5) 09/23/21 04:44 Albumin/Globulin Ratio 2.3 % 09/23/21 04:44 Prolactin 123.4 ng/mL () 09/22/21 18:30 Urine Color Yellow (Yellow) 09/22/21 19:52 Urine Turbidity Clear (Clear) 09/22/21 19:52 Urine pH 7.5 (5.0-7.0) H 09/22/21 19:52 Ur Specific [place] 1.020 (1.003-1.030) 09/22/21 19:52 Urine Protein 30 mg/dl mg/dL (Negative) 09/22/21 19:52 Urine Glucose (UA) Negative mg/dL (Negative) 09/22/21 19:52 Urine Ketones Trace mg/dL (Negative) 09/22/21 19:52 Urine Blood Negative (Negative) 09/22/21 19:52 Urine Nitrite Negative (Negative) 09/22/21 19:52 Urine Bilirubin Negative (Negative) 09/22/21 19:52 Urine Urobilinogen 2.0 mg/dL (<2.0) 09/22/21 19:52 Ur Leukocyte Esterase Negative (Negative) 09/22/21 19:52 Urine WBC (Auto) 3.0 /HPF (0.0-6.0) 09/22/21 19:52 Urine RBC (Auto) 1.0 /HPF (0.0-6.0) 09/22/21 19:52 U Epithel Cells (Auto) 2.0 /HPF (0-13.0) 09/22/21 19:52 Calcium Oxalate Crystal Few 09/22/21 19:52 Urine Mucus 3+ /HPF 09/22/21 19:52 Valproic Acid 102.2 ug/mL (50-100) H 09/24/21 11:09 Coronavirus (PCR) Negative (Negative) 09/25/21 10:45 Microbiology: Microbiology 09/24/21 07:58 Peripheral/Venous Blood Culture - Preliminary Bacillus Species 09/24/21 07:58 Peripheral/Venous Blood Culture - Preliminary NO GROWTH AFTER 72 HOURS 09/24/21 11:28 Peripheral/Venous Blood Culture - Preliminary NO GROWTH AFTER 72 HOURS 09/24/21 11:28 Peripheral/Venous Blood Culture - Preliminary NO GROWTH AFTER 72 HOURS [place]/IV: Voiding Method Urinal Nutrition/Malnutrition Assess - Dietary Evaluation Nutrition/Malnutrition Findings: Nutrition Notes Start: 09/23/21 12:32 Freq: Status: Discharge Protocol: Document 09/25/21 12:03 SHOAIB (Rec: 09/25/21 12:22 SHOAIB [id number]) Nutrition Notes Initial or Follow up Brief Note Other Pertinent Diagnosis Pseudoseizure, Tachicardia, Depression,Hypothyroidism, L- Shoulder dislocati Current Diet Regular Diet (since B 09/24). Height 5 ft 8 in Weight 83 kg [place] Body Weight (kg) 70.00 BMI 27.8 Weight change and time frame No body weight change reported in 2 days. Weight Status Overweight Subjective/Other Information RD consult for routine F/U on dietary advancement. Diet change to PO, Pt's PO intake of meals has been Poor (25%), according to ADL notes, however, RN reports that pt asked for snaks and drinks after seizure episode and tolerated diet well. Pt was extubated on 09/23, Pt is now on Room Air, O2 saturation @ 96%, according to Physical Assessment History notes. Bedside swallow screen passed on 09/23, according to Swallow Screen Report notes. Percent of energy/protein needs met: Prescribed Regular Diet provides for energy/protein needs (2,289 Kcal/89 g) during LOS. #1 Nutrition Diagnosis Inadequate oral intake Comments: Pt was extubated on 09/23, Pt is now on Room Air, O2 saturation @ 96%, according to Physical Assessment History notes. Bedside swallow screen passed on 09/23, according to Swallow Screen Report notes. Diagnosis Progress(for reassessment Resolved documentation) Is patient on ventilator? No Is Patient Ambulatory and/or Out of Bed Yes REE-([place]-[facility]-ambulatory/OOB) [ 2345.850 [id number]] Kcal/Kg value to use for calculation 22 Approximate Energy Requirements Using 1826 kcal/Kg Calculation Used for Recommendations Kcal/kg Additional Notes Protein: 0.8-1 g/Kg ABW; 66-83 g/day. Fluids: 1 ml/Kcal, or as per MD. Nutrition Intervention Change Diet Order: Continue Regular Diet. Nutrition Support: Discontinued. Goal #1 Adjust the dietary intervention to better serve Pt's needs and clinical conditions during LOS. Goal #2 Maintain body weight within +/ -3% of admission body weight during LOS. Follow-Up By: 10/01/21 Additional Comments Continue monitoring food tolerance, %PO intake of meals , and BM.
[2021-09-24] MEDS ORDERED: LORazepam 2 MG/ML VIAL IV ONE (19:58)
[2021-09-24] MEDS: VALPROIC ACID 250 MG CAP PO SCH (22:15)
[2021-09-24] MEDS: levETIRAcetam 500 MG/5 ML ORAL LIQD PO SCH (22:16)
[2021-09-24] MEDS: DOCUSATE SODIUM 100 MG/10 ML ORAL LIQD PO SCH ×2 (23:13→23:47)
[2021-09-25] MEDS: ACETAMINOPHEN 325 MG TAB PO PRN (05:29)
[2021-09-25] MEDS: LEVOTHYROXINE 25 MCG TAB PO SCH (05:29)
--- NOTE | 2021-09-25 08:23 | Progress Note ---
Assessment and Plan Assessment and plan: History Interval history: This is a 21-year-old male with hypothyroidism, seizure disorder (? Pseudoseizure), depression and history of prior dislocated shoulder who presented to emergency department on 09/22 with complaints of dislocated shoulder after falling out of bed earlier in the day. In the ED several attempts were made to reduce the shoulder under moderate sedation however the shoulder appeared to reduce when attempting to place patient in the sling and while ED p amie was awaiting Ortho evaluation patient was witnessed to have a seizure and was given Ativan 2 mg x 2 without improvement episode lasted approximately 5 minutes. At this time oxygen saturations were in the 80s and decision was made to intubate for airway protection. Patient was admitted to the hospital service with consult to orthopedics and [facility] for acute hypoxic respiratory failure and s eizure-like activity. Hospital course to date: 09/23: Patient was sedated on propofol 50 mcg. MRI was ordered however unable to obtain family therefore changes CT head. Neurology consulted. EEG ordered. As needed Ativan ordered. After CT head results which showed no acute acute abnormality patient was extubated by RT at bedside. This evening patient was witnessed to have seizure-like activity x2 and was given Ativan. Patient continued to have seizure-like like activity while EEG was taking place. nurse tech stated she did not see any seizure activity associated with jerking motions. Patient will be moved to room across from the nurses station for closer monitoring. Psych consult pending. 09/24: FADI overnight. Transfer to floor with sitter, preferably close to RN station. Awaiting psych input. No seizure activity noted. 09/25: FADI. awaiting psych input. Would probably benefit from inpatient psych. D/c ativan and narcotic pain meds at this time. "seizures" are non-epileptic episodes or pseudoseizures. Recommend constant vital sign monitoring with O2 sat s. Assessment and plan: Neuro: h/o pseudoseizures, depression, self inflicted shoulder dislocation -Resume home antiepileptic medications: Keppra, Depakene, Oxycarbamazepine -Reorientation as needed -Maintain sleep-wake cycle -aspiration/seizure precautions -As needed analgesia -CT head with no acute abnormality -Neurology consulted, appreciate recommendations -EEG pending -Psych consulted, appreciate recommendations Cardiac: Sinus tachycardia -Blood pressure monitoring per protocol Respiratory: Acute hypoxic respiratory failure (resolved) -[facility] consulted, appreciate recommendations -Intubated in the ED on 09/22 for airway protection with 7.50 ETT at 24 the lips and extubated 09/23 -Currently on RA 97%. GI: NAD -PPI -Regular diet : NAD -Monitor intake and output -Trend renal fx on BMP ID: Intermittent fevers -As needed Tylenol -BCx 09/24: NGTD -UA (-) -Monitor WBC and temperature curve Endo: h/o Hypothyroidism -Resume home Synthroid 25 mcg daily -Avoid hypoglycemia Heme: NAD -Heparin subcu -Trend CBC -SCDs to BLE while in bed History Interval history: Patient seen and evaluated bedside today. Discussed care plan for today which patient agreed with. Discussed with RN regarding plan to address any potential nonepileptic activity, constant vital line Hospitalist Physical - Physical exam Narrative exam: General appearance: Present: no acute distress, well-nourished - EENT Eyes: Present: PERRL, EOM intact ENT: hearing intact, clear oral mucosa, dentition normal - Neck Neck: Present: normal ROM - Respiratory Respiratory effort: normal Respiratory: bilateral: CTA - Extremities Extremities: no ischemia, pulses intact, pulses symmetrical, No edema, normal temperature, normal color, Full ROM Peripheral Pulses: within normal limits - Abdominal General gastrointestinal: soft, non-tender, normal bowel sounds - Integumentary Integumentary: Present: warm, dry - Psychiatric Psychiatric: cooperative - Neurologic Neurologic: CNII-XII intact, no focal deficits, moves all extremities - Allied Health Allied health notes reviewed: nursing, RT, social work - Constitutional Vitals: Temp Pulse Resp BP Pulse Ox 98.4 F 95 H 18 114/77 97 09/25/21 04:00 09/25/21 04:00 09/25/21 04:00 09/25/21 04:00 09/25/21 04:00 General appearance: Present: no acute distress, well-nourished Results - Labs CBC & Chem 7: 09/24/21 04:19 09/24/21 04:19 Labs: Laboratory Last Values WBC 11.4 K/mm3 (4.5-11.0) H 09/24/21 04:19 RBC 5.09 M/mm3 (3.65-5.03) H 09/24/21 04:19 Hgb 14.2 gm/dl (11.8-15.2) 09/24/21 04:19 Hct 42.9 % (35.5-45.6) 09/24/21 04:19 MCV 84 fl (84-94) 09/24/21 04:19 MCH 28 pg (28-32) 09/24/21 04:19 MCHC 33 % (32-34) 09/24/21 04:19 RDW 14.4 % (13.2-15.2) 09/24/21 04:19 Plt Count 118 K/mm3 (140-440) L 09/24/21 04:19 Lymph % (Auto) 19.7 % (13.4-35.0) 09/23/21 04:44 [place] % (Auto) 8.2 % (0.0-7.3) H 09/23/21 04:44 Eos % (Auto) 1.1 % (0.0-4.3) 09/23/21 04:44 Baso % (Auto) 0.7 % (0.0-1.8) 09/23/21 04:44 Lymph # (Auto) 1.5 K/mm3 (1.2-5.4) 09/23/21 04:44 [place] # (Auto) 0.6 K/mm3 (0.0-0.8) 09/23/21 04:44 Eos # (Auto) 0.1 K/mm3 (0.0-0.4) 09/23/21 04:44 Baso # (Auto) 0.1 K/mm3 (0.0-0.1) 09/23/21 04:44 Seg Neutrophils % 70.3 % (40.0-70.0) H 09/23/21 04:44 Seg Neutrophils # 5.3 K/mm3 (1.8-7.7) 09/23/21 04:44 ABG pH 7.376 pH Units (7.350-7.450) 09/23/21 04:00 ABG pCO2 44.8 mm Hg 09/23/21 04:00 ABG pO2 125.0 mm Hg (80.0-90.0) H 09/23/21 04:00 ABG HCO3 25.7 mmol/L (20.0-26.0) 09/23/21 04:00 ABG O2 Saturation 98.3 % (95.0-99.0) 09/23/21 04:00 ABG O2 Content 18.6 (0.0-44) 09/23/21 04:00 ABG Base Excess 0.2 mmol/L (-2.0-3.0) 09/23/21 04:00 ABG Hemoglobin 13.6 gm/dl (14.0-18.0) L 09/23/21 04:00 ABG Carboxyhemoglobin 1.3 % (0.0-5.0) 09/23/21 04:00 ABG Methemoglobin 0.6 % (0.0-1.5) 09/23/21 04:00 Oxyhemoglobin 96.5 % (95.0-99.0) 09/23/21 04:00 FiO2 25 % 09/23/21 04:00 Sodium 140 mmol/L (137-145) 09/24/21 04:19 Potassium 3.6 mmol/L (3.6-5.0) 09/24/21 04:19 Chloride 105.9 mmol/L (98-107) 09/24/21 04:19 Carbon Dioxide 23 mmol/L (22-30) 09/24/21 04:19 Anion Gap 15 mmol/L 09/24/21 04:19 BUN 11 mg/dL (9-20) 09/24/21 04:19 Creatinine 0.9 mg/dL (0.8-1.3) 09/24/21 04:19 Estimated GFR > 60 ml/min 09/24/21 04:19 BUN/Creatinine Ratio 12 % 09/24/21 04:19 Glucose 87 mg/dL (75-100) 09/24/21 04:19 POC Glucose 74 mg/dL (70-105) 09/23/21 15:57 Calcium 9.2 mg/dL (8.4-10.2) 09/24/21 04:19 Total Bilirubin 0.90 mg/dL (0.1-1.2) 09/23/21 04:44 Direct Bilirubin < 0.2 mg/dL (0-0.2) 09/22/21 18:30 Indirect Bilirubin 0.7 mg/dL 09/22/21 18:30 AST 15 units/L (5-40) 09/23/21 04:44 ALT 7 units/L (7-56) 09/23/21 04:44 Alkaline Phosphatase 70 units/L (35-129) 09/23/21 04:44 Total Protein 6.9 g/dL (6.3-8.2) 09/23/21 04:44 Albumin 4.8 g/dL (3.9-5) 09/23/21 04:44 Albumin/Globulin Ratio 2.3 % 09/23/21 04:44 Urine Color Yellow (Yellow) 09/22/21 19:52 Urine Turbidity Clear (Clear) 09/22/21 19:52 Urine pH 7.5 (5.0-7.0) H 09/22/21 19:52 Ur Specific [place] 1.020 (1.003-1.030) 09/22/21 19:52 Urine Protein 30 mg/dl mg/dL (Negative) 09/22/21 19:52 Urine Glucose (UA) Negative mg/dL (Negative) 09/22/21 19:52 Urine Ketones Trace mg/dL (Negative) 09/22/21 19:52 Urine Blood Negative (Negative) 09/22/21 19:52 Urine Nitrite Negative (Negative) 09/22/21 19:52 Urine Bilirubin Negative (Negative) 09/22/21 19:52 Urine Urobilinogen 2.0 mg/dL (<2.0) 09/22/21 19:52 Ur Leukocyte Esterase Negative (Negative) 09/22/21 19:52 Urine WBC (Auto) 3.0 /HPF (0.0-6.0) 09/22/21 19:52 Urine RBC (Auto) 1.0 /HPF (0.0-6.0) 09/22/21 19:52 U Epithel Cells (Auto) 2.0 /HPF (0-13.0) 09/22/21 19:52 Calcium Oxalate Crystal Few 09/22/21 19:52 Urine Mucus 3+ /HPF 09/22/21 19:52 Valproic Acid 102.2 ug/mL (50-100) H 09/24/21 11:09 Microbiology: Microbiology 09/24/21 07:58 Peripheral/Venous Blood Culture - Preliminary Culture in Progress 09/24/21 07:58 Peripheral/Venous Blood Culture - Preliminary Culture in Progress 09/24/21 11:28 Peripheral/Venous Blood Culture - Preliminary Culture in Progress 09/24/21 11:28 Peripheral/Venous Blood Culture - Preliminary Culture in Progress [place]/IV: Voiding Method Urinal Active Medications - Current Medications Current Medications: Generic Name Dose Route Start Last Admin Trade Name Freq PRN Reason Stop Dose Admin Acetaminophen 650 mg 09/22/21 20:39 09/25/21 05:29 Acetaminophen 325 Mg Tab PO 650 mg Q4H PRN Administration Pain MILD(1-3)/Fever >100.5/VALERA Acetaminophen 650 mg 09/23/21 19:42 09/23/21 19:54 Acetaminophen 650 Mg Rect Supp HI 650 mg Q4H PRN Administration Fever >101 Docusate Sodium 100 mg 09/24/21 22:00 09/24/21 23:47 Docusate Sodium 100 Mg/10 Ml Oral Liqd PO Not Given BID SAUL Famotidine 20 mg 09/25/21 10:00 Famotidine 20 Mg Tab PO QDAY SAUL Heparin Sodium (Porcine) 5,000 unit 09/22/21 22:00 09/24/21 23:16 Heparin 5,000 Unit/1 Ml Vial SUB-Q 5,000 unit Q12HR SAUL Administration Levetiracetam 1,500 mg 09/24/21 22:00 09/24/21 22:16 Levetiracetam 500 Mg/5 Ml Oral Liqd PO 1,500 mg BID SAUL Administration Levothyroxine Sodium 25 mcg 09/23/21 06:00 09/25/21 05:29 Levothyroxine 25 Mcg Tab PO 25 mcg DAILY@0600 SAUL Administration Ondansetron HCl 4 mg 09/22/21 20:39 Ondansetron 4 Mg/2 Ml Inj IV Q8H PRN Nausea And Vomiting Oxcarbazepine 150 mg 09/22/21 22:00 09/24/21 23:29 Oxcarbazepine 150 Mg Tab PO 150 mg BID SAUL Administration Sertraline HCl 50 mg 09/23/21 10:00 09/24/21 09:25 Sertraline 50 Mg Tab PO 50 mg QDAY SAUL Administration Sodium Chloride 10 ml 09/22/21 22:00 09/24/21 22:14 Sodium Chloride 0.9% 10 Ml Flush Syringe IV 10 ml BID SAUL Administration Sodium Chloride 10 ml 09/22/21 20:39 Sodium Chloride 0.9% 10 Ml Flush Syringe IV PRN PRN LINE FLUSH Valproic Acid 750 mg 09/24/21 22:00 09/24/21 22:15 Valproic Acid 250 Mg Cap PO 750 mg BID SAUL Administration Nutrition/Malnutrition Assess - Dietary Evaluation Nutrition/Malnutrition Findings: Nutrition Notes Start: 09/23/21 12:32 Freq: Status: Active Protocol: Document 09/23/21 12:32 SHOAIB (Rec: 09/23/21 13:00 SHOAIB [id number]) Nutrition Notes Need for Assessment generated from: MD Order Initial or Follow up Assessment Other Pertinent Diagnosis Status Epilepticus, Hypothyroidism, L-Shoulder dislocation. Current Diet TF-Vital AF 1.2 Fritz @ 40 ml/hr (from D 09/23). Labs/Tests 09/23: CO2 21. Pertinent Medications 09/23: Levothyroxine, Propofol @ 25.038 ml/hr (661 Kcal), others nutritionally unremarkable. 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 Weight Status Overweight Subjective/Other Information RD consult for write/manage TF . Pt currently on NPO. Pt is on Mechanical Ventilation, O2 saturation @ 100%, according to Physical Assessment History notes. Pt has missing teeth, according to Physical Assessment History notes. Percent of energy/protein needs met: Pt currently on NPO. Prescribed TF-Vital AF 1.2 Fritz @ 40 ml/hr provides for energy/protein needs (1,165 Kcal/73 g) during LOS, 64% Kcal; 100% AA. Including 661 Kcal from Propofol; 100% Kcal; 100% AA. Burn Absent Trauma Absent GI Symptoms None Food Allergy Yes Skin Integrity/Comment Assessment WNL. Current % PO Other Minimum of two criteria No #1 Nutrition Diagnosis Inadequate oral intake Etiology Pt is on Mechanical Ventilation. As Evidenced by Signs and Symptoms Pt currently on NPO. Is patient on ventilator? Yes Is Patient Ambulatory and/or Out of Bed No REE-([facility]-confined to bed) 2166.516 Kcal/Kg value to use for calculation 22 Approximate Energy Requirements Using 1826 kcal/Kg Calculation Used for Recommendations Kcal/kg Additional Notes Protein: 0.8-1 g/Kg ABW; 66-83 g/day. Fluids: 1 ml/Kcal, or as per MD. Nutrition Intervention Nutrition Support: Start TF-Vital AF 1.2 Fritz @ 40 ml/hr. Flush: 170 ml water Q 4 hr, or as per MD. Kcal 1,165 Protein (gm) 73 Carbohydrates (gm) 107 Fat (gm) 52 Fluid (mL) 787 Fiber (gm) 5 % RDI: 64% Kcal; 100% AA. Goal #1 Provide at least 75% of energy /protein needs through Enteral Feeding during LOS. Goal #2 Maintain body weight within +/ -3% of admission body weight during LOS. Follow-Up By: 09/25/21 Additional Comments Start monitoring TF tolerance and BM.
[2021-09-25] MEDS: DOCUSATE SODIUM 100 MG/10 ML ORAL LIQD PO SCH (09:15)
[2021-09-25] MEDS: levETIRAcetam 500 MG/5 ML ORAL LIQD PO SCH (09:22)
[2021-09-25] MEDS: VALPROIC ACID 250 MG CAP PO SCH ×2 (09:22→09:31)
[2021-09-25] MEDS: HEPARIN 5,000 UNIT/1 ML VIAL SUB-Q SCH ×2 (09:22→09:45)
[2021-09-25] MEDS: FAMOTIDINE 20 MG TAB PO SCH ×2 (09:23→09:47)
[2021-09-25] MEDS: OXcarbazepine 150 MG TAB PO SCH ×2 (09:23→09:45)
[2021-09-25] MEDS: SERTRALINE 50 MG TAB PO SCH ×2 (09:24→09:47)
[2021-09-25] MEDS: ACETAMINOPHEN 650 MG RECT SUPP PR PRN (09:47)
[2021-09-25 11:16] VITALS: BP 148/82
[2021-09-25 15:27] LABS: Hematocrit 39.2 % (35.5-45.6); Hemoglobin 13.1 gm/dl (11.8-15.2); Mean Corpuscular HGB Conc 34 % (32-34); Mean Corpuscular Volume 84 fl (84-94); Platelet Count 111 K/mm3 (140-440); Red Blood Count 4.66 M/mm3 (3.65-5.03); Red Cell Distribution Width 14.6 % (13.2-15.2)
--- NOTE | 2021-09-25 15:32 | Consultation ---
History of Present Illness - Reason for Consult Consult date: 09/25/21 Reason for consult: MHE - Chief Complaint Chief complaint: Seizures - History of Present Psychiatric Illness Patient seen by me with his Nurse at bedside. He is alert, fully oriented and pleasant. Patient describes a good and stable mood, denies being depressed or excessively nervous. Patient eats and sleeps well. Patient denies panic attacks, recurrent nightmares or flashbacks. Patient denies symptoms suggestive of OCD or PTSD. Patient denies hallucinations, paranoia, thought interference and no features suggestive of hypomania or elida. He completely denies suicidal or homicidal thoughts. PAST PSYCHIATRIC HISTORY: Patient denies PAST MEDICAL HISTORY: Seizures Family Psychiatric History None reported or documented SOCIAL HISTORY Marital Status: single Living Arrangements: alone per patient Employment Status: unemployed Access to guns/weapons: patient denies Education: High school History of Abuse: patient denies Legal History: patient denies ROS: Constitutional: Negative for weight loss ENT: Negative for stridor Respiratory: Negative for cough or hemoptysis All other systems reviewed and are negative MENTAL STATUS General Appearance and Behavior: age appropriate, good eye contact, cooperative with questioning and polite Cooperation: Cooperative Psychomotor Behavior: within normal limits Mood: OK Affect and affective range: Congruent with stated mood Thought Process: Fluent/Logical and Goal-directed Thought Content: Within reality Speech: Normal volume and Regular rate and rhythm Intellectual Functioning Average Suicidal Ideation: Denies SI Homicidal Ideation: Denies HI Impulse Control: intact Insight and Judgment: normal insight and judgment Memory: Normal Attention: Normal Orientation: alert and oriented RECOMMENDATIONS MEDICATIONS: None indicated 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 Medications and Allergies Allergies Allergy/AdvReac Type Severity Reaction Status Date / Time ketamine Allergy Hives Verified 09/22/21 17:10 tomato Allergy Anaphylaxis Verified 09/22/21 16:24 Home Medications Medication Instructions Recorded Confirmed Last Taken Type Divalproex Sprinkle [Depakote 750 mg PO BID #60 capsule 08/21/18 09/25/21 Unknown Rx Sprinkle] Levothyroxine [Synthroid] 25 mcg PO DAILY@0600 #30 tablet 08/21/18 09/25/21 Unknown Rx OXcarbazepine [Trileptal] 150 mg PO BID #60 tablet 08/21/18 09/25/21 Unknown Rx Sertraline [Zoloft] 50 mg PO QDAY #30 tablet 08/21/18 09/25/21 Unknown Rx levETIRAcetam [Keppra TAB] 1,000 mg PO BID #60 tablet 08/21/18 09/25/21 Unknown Rx Active Meds: Active Medications Acetaminophen (Acetaminophen 325 Mg Tab) 650 mg PO Q4H PRN PRN Reason: Pain MILD(1-3)/Fever >100.5/VALERA Last Admin: 09/25/21 05:29 Dose: 650 mg Acetaminophen (Acetaminophen 650 Mg Rect Supp) 650 mg [place] Q4H PRN PRN Reason: Fever >101 Last Admin: 09/25/21 09:47 Dose: 650 mg Docusate Sodium (Docusate Sodium 100 Mg/10 Ml Oral Liqd) 100 mg PO BID [facility] Last Admin: 09/25/21 09:15 Dose: Not Given Famotidine (Famotidine 20 Mg Tab) 20 mg PO QDAY [facility] Last Admin: 09/25/21 09:47 Dose: 20 mg Heparin Sodium (Porcine) (Heparin 5,000 Unit/1 Ml Vial) 5,000 unit SUB-Q Q12HR [facility] Last Admin: 09/25/21 09:45 Dose: 5,000 unit Levetiracetam (Levetiracetam 500 Mg/5 Ml Oral Liqd) 1,500 mg PO BID [facility] Last Admin: 09/25/21 09:22 Dose: 1,500 mg Levothyroxine Sodium (Levothyroxine 25 Mcg Tab) 25 mcg PO DAILY@0600 [facility] Last Admin: 09/25/21 05:29 Dose: 25 mcg Ondansetron HCl (Ondansetron 4 Mg/2 Ml Inj) 4 mg IV Q8H PRN PRN Reason: Nausea And Vomiting Oxcarbazepine (Oxcarbazepine 150 Mg Tab) 150 mg PO BID [facility] Last Admin: 09/25/21 09:45 Dose: 150 mg Sertraline HCl (Sertraline 50 Mg Tab) 50 mg PO QDAY [facility] Last Admin: 09/25/21 09:47 Dose: 50 mg Sodium Chloride (Sodium Chloride 0.9% 10 Ml Flush Syringe) 10 ml IV BID [facility] Last Admin: 09/25/21 09:23 Dose: Not Given Sodium Chloride (Sodium Chloride 0.9% 10 Ml Flush Syringe) 10 ml IV PRN PRN PRN Reason: LINE FLUSH Valproic Acid (Valproic Acid 250 Mg Cap) 750 mg PO BID [facility] Last Admin: 09/25/21 09:31 Dose: 750 mg Mental Status Exam - Vital signs Last Vital Signs Temp 97.9 F 09/25/21 11:03 Pulse 81 09/25/21 11:03 Resp 18 09/25/21 11:03 BP 148/82 09/25/21 11:03 Pulse Ox 95 09/25/21 11:03 Results Result Diagrams: 09/25/21 14:38 09/24/21 04:19 Abnormal lab results 09/25/21 Range/Units 14:38 Plt Count 111 L (140-440) K/mm3 All other labs normal.
--- NOTE | 2021-09-25 15:34 | Discharge Summary ---
Providers - Providers Date of Admission: 09/22/21 21:39 Date of discharge: 09/25/21 Attending physician: DEVYN SARKAR MD 09/23/21 07:23 Consult to Physician [CONS] Routine Comment: Consulting Provider: JEN ZARATE Physician Instructions: Reason For Exam: seizure 09/23/21 07:25 Consult to Dietitian/Nutrition [CONS] Routine Physician Instructions: Reason For Exam: Reason for Consult: Write/Manage Tube Feeding 09/23/21 14:34 Consult to Physician [CONS] Routine Comment: Consulting Provider: SHELTON LACKEY Physician Instructions: Reason For Exam: psych hx 09/25/21 09:07 Consult to Mental Health [CONS] Routine Reason For Exam: psy hx Primary care physician: ORDER FULFILLMENT SPECIALIST Hospitalization Reason for admission: seizure like activity Condition: Stable Hospital course: Interval history: This is a 21-year-old male with hypothyroidism, seizure disorder (? Pse udoseizure), depression and history of prior dislocated shoulder who presented to emergency department on 09/22 with complaints of dislocated shoulder after falling out of bed earlier in the day. In the ED several attempts were made to reduce the shoulder under moderate sedation however the shoulder appeared to reduce when attempting to place patient in the sling and while ED physician was awaiting Ortho evaluation patient was witnessed to have a seizure and was given Ativan 2 mg x 2 without improvement episode lasted approximately 5 minutes. At this time oxygen saturations were in the 80s and decision was made to intubate for airway protection. Patient was admitted to the hospital service with consult to orthopedics and CCM for acute hypoxic respiratory failure and seizure-like activity. Hospital course to date: 09/23: Patient was sedated on propofol 50 mcg. MRI was ordered however unable to obtain family therefore changes CT head. Neurology consulted. EEG ordered. As needed Ativan ordered. After CT head results which showed no acute acute abnormality patient was extubated by RT at bedside. This evening patient was witnessed to have seizure-like activity x2 and was given Ativan. Patient continued to have seizure-like like activity while EEG was taking place. technical sales representatives stated she did not see any seizure activity associated with jerking motions. Patient will be moved to room across from the nurses station for closer monitoring. Psych consult pending. 09/24: FADI overnight. Transfer to floor with sitter, preferably close to RN station. Awaiting psych input. No seizure activity noted. 09/25: FADI. awaiting psych input. Would probably benefit from inpatient psych. D/c ativan and narcotic pain meds at this time. "seizures" are non-epileptic e pisodes or pseudoseizures. Recommend constant vital sign monitoring with O2 sats. Patient is currently a 1013 due to concern for self harm and having a history of doing so. I discussed the rationale for the 1013 as well as need for psychiatry and he agreed. ELEONORA Hui present at bedside. D/w Dr. [place] who will evaluate the patient today. psychiatry saw and evaluated the patient. No indication for acute inpatient psychiatry. 1013 rescinded. patient will be d/c home with intructions to follow up with OP neurology, psychiatry, and primary care physician. He was advised to avoid operating a motor vehicle until cleared by a physician. Assessment and plan: Neuro: h/o pseudoseizures, depression, self inflicted shoulder dislocation -Resume home antiepileptic medications: Keppra, Depakene, Oxycarbamazepine -Reorientation as needed -Maintain sleep-wake cycle -aspiration/seizure precautions -As needed analgesia -CT head with no acute abnormality -Neurology consulted, appreciate recommendations -EEG pending -Psych consulted, appreciate recommendations Cardiac: Sinus tachycardia -Blood pressure monitoring per protocol Respiratory: Acute hypoxic respiratory failure (resolved) -CCM consulted, appreciate recommendations -Intubated in the ED on 09/22 for airway protection with 7.50 ETT at 24 the lips and extubated 09/23 -Currently on RA 97%. GI: NAD -PPI -Regular diet : NAD -Monitor intake and output -Trend renal fx on BMP ID: Intermittent fevers -As needed Tylenol -BCx 09/24: NGTD -UA (-) -Monitor WBC and temperature curve Endo: h/o Hypothyroidism -Resume home Synthroid 25 mcg daily -Avoid hypoglycemia Heme: NAD -Heparin subcu -Trend CBC -SCDs to BLE while in bed Disposition: HOME / SELF CARE / HOMELESS Final Discharge Diagnosis (Prints w/discharge instructions): pseudoseizure, shoulder dislocation, respiratory failure Time spent for discharge: 35 Core Measure Documentation - Palliative Care Palliative Care/ Comfort Measures: Not Applicable - Core Measures Any of the following diagnoses?: none Exam - Physical Exam Narrative exam: General appearance: Present: no acute distress, well-nourished - EENT Eyes: Present: PERRL, EOM intact ENT: hearing intact, clear oral mucosa, dentition normal - Neck Neck: Present: normal ROM - Respiratory Respiratory effort: normal Respiratory: bilateral: CTA - Extremities Extremities: no ischemia, pulses intact, pulses symmetrical, No edema, normal temperature, normal color, Full ROM Peripheral Pulses: within normal limits - Abdominal General gastrointestinal: soft, non-tender, normal bowel sounds - Integumentary Integumentary: Present: warm, dry - Psychiatric Psychiatric: cooperative - Neurologic Neurologic: CNII-XII intact, no focal deficits, moves all extremities - Allied Health Allied health notes reviewed: nursing, RT, social work - Constitutional Vitals: Temp Pulse Resp BP Pulse Ox 97.9 F 81 18 148/82 95 09/25/21 11:03 09/25/21 11:03 09/25/21 11:03 09/25/21 11:03 09/25/21 11:03 Plan Additional Instructions: Mr Valdez. You were admitted for a pseudoseizure. We determined on this admission that your "seizure-like" activity is not a primary neurological condition but rather psychological. Psychiatrist evaluated you this admission and deemed you clear for discharge. We recommend you follow-up outpatient with a neurologist, psychiatrist, and your primary care doctor. You should resume all of your home medications as prescribed by your outpatient primary care doctor. Please do not operate a motor vehicle until cleared by your primary care physician Follow up with: ALLA GAITAN MD [Primary Care Provider] - 7 Days
== END 2021-09-25 16:08 | disposition home or self-care (01) | DRG 100 ==
LOC: ED 15:42 → CC1 21:39 → 3A 09-24 16:11
PROVIDERS: ADMIT Internal Medicine; ATTEND Internal Medicine
PROC: 0BH17EZ Insertion of Endotracheal Airway into Trachea, Via Natural or Artificial Opening (ICD-10-PCS; principal; 2021-09-22)
PROC: 4A033R1 Measurement of Arterial Saturation, Peripheral, Percutaneous Approach (ICD-10-PCS; 2021-09-22)
PROC: 5A1935Z Respiratory Ventilation, Less than 24 Consecutive Hours (ICD-10-PCS; 2021-09-22)
PROC: 0BP1XDZ Removal of Intraluminal Device from Trachea, External Approach (ICD-10-PCS; 2021-09-23)
DX: G40.901 Epilepsy, unspecified, not intractable, with status epilepticus (principal); G92.8 Other toxic encephalopathy; J96.01 Acute respiratory failure with hypoxia; Z20.822 Contact with and (suspected) exposure to COVID-19; M24.412 Recurrent dislocation, left shoulder; F41.9 Anxiety disorder, unspecified; F32.A Depression, unspecified; E87.2 Acidosis; E03.9 Hypothyroidism, unspecified; Z79.899 Other long term (current) drug therapy; Z82.49 Family history of ischemic heart disease and other diseases of the circulatory system; Z88.8 Allergy status to other drugs, medicaments and biological substances; Z91.018 Allergy to other foods
CPT/HCPCS: 36415; 36600; 70450; 71045; 74018; 80048; 80053; 80076; 80164; 81001; 82803; 82962; 84146; 85025; 85027; 87040; 94002; 94003; 95819; G0378; J3490; J7060; J7070; J1644; J1953; J2060; J2250; J2270; J2405; J2704; J7030; U0003